=== PATIENT | female | born 1960 | race Hispanic/Latino ===

== ENCOUNTER 2018-04-27 08:08 | Outpatient (CLI) | payer MEDICARE, BC ==
[2018-04-27] MEDS ORDERED: Gadobenate Dimeglumine 529 MG/1 ML (20ML VIAL) ONE (14:58)
== END 2018-04-27 08:09 | disposition home or self-care (01) ==
LOC: BICMRI 08:08
PROVIDERS: ATTEND Psychiatry & Neurology Neurology
DX: G35 Multiple sclerosis (principal); R90.89 Other abnormal findings on diagnostic imaging of central nervous system
CPT/HCPCS: 70553; A9579

== ENCOUNTER 2019-11-08 09:03 | Outpatient (CLI) | payer MEDICARE, BC ==
--- NOTE | 2019-11-08 11:28 | MRI ---
BRAIN MRI WITH AND WITHOUT CONTRAST: DATE: 11/08/2019. COMPARISON: 10/18/2007. HISTORY: Reevaluate multiple sclerosis that was diagnosed in the . The patient reports no new symptoms. TECHNIQUE: Multiplanar, multisequence MR imaging of the brain is obtained with and without contrast. FINDINGS: The diffusion weighted imaging demonstrates no evidence for acute infarction. The axial gradient echo imaging demonstrates no evidence for intracranial hemorrhage. There is no midline shift or mass effect and there is no ventricular enlargement appreciated. There are numerous foci of increased T2 and FLAIR signal within the periventricular deep and subcorti vaishnavi white matter consistent with the patient's history of multiple sclerosis. There is linear increa sed FLAIR signal along the undersurface of the corpus callosum including the mid body and splenium. The white matter disease is confluent in the periventricular region adjacent to the anterior aspect o f bilateral lateral ventricles, right greater than left. There is a probable subtle T2 hyperintense lesion noted within the posterior lateral aspect of the po ns on the right on the FLAIR imaging measuring in the 3-4 mm range. Regional bone marrow signal intensity appears within normal limits. Post contrast imaging is provided, demonstrating no abnormal enhancement to suggest the presence of a ctive demyelination. Arterial flow voids appear grossly unremarkable at the axial level of the skull base on the T2 weighted imaging. When compared to the prior study performed in 2007, the degree of white matter disease has progressed in the periventricular regions adjacent to the body of the lateral ventricle bilaterally. A new sub cortical lesion is noted within the anterior right frontal lobe. The lesion within the sridhar appears new as well. IMPRESSION: Signal abnormality consistent with the provided history of multiple sclerosis. There has been progre ssion of periventricular disease since the 2007 exam. No more recent comparison imaging is available . No abnormal enhancement is seen to suggest the presence of active demyelination. POS: [facility]
[2019-11-08] MEDS ORDERED: Magnevist 469MG/ML 20 ML VIAL ONE (14:52)
== END 2019-11-08 09:04 | disposition home or self-care (01) ==
LOC: BICMRI 09:03
PROVIDERS: ATTEND Nurse Practitioner Acute Care
DX: G35 Multiple sclerosis (principal); G93.89 Other specified disorders of brain
CPT/HCPCS: 70553; A9579

== ENCOUNTER 2020-09-28 16:51 | Inpatient (IN) | payer MEDICARE, BC ==
--- NOTE | 2020-09-28 17:57 | RAD ---
Right hip two views: 09/28/20 HISTORY: Fall, right hip pain. FINDINGS/IMPRESSION: There is a tiny lucency involving the subcapital region of the outer aspect of the neck of the femur which could represent a nondisplaced fracture. POS: [facility]
[2020-09-28 18:01] LABS: #Eosinphils 0.1 thou/uL (0.0-0.7); #Lymphocytes 1.7 thou/uL (1.20-3.40); #Monocytes 0.7 thou/uL (0.11-0.59); #Neutrophils 8.2 thou/uL (1.40-6.50); %Basophils 0.3 % (0.0-1.0); %Eosinophils 0.5 % (0.0-10.0); %Lymphocytes 15.5 % (21.0-51.0); %Monocytes 6.9 % (0.0-10.0); %Neutrophils 76.8 % (42.0-75.0); Hemoglobin 13.1 g/dL (12.0-16.0); Mean Corpuscular HGB CONC 32.2 g/dL (32.0-36.0); Mean Corpuscular Hemoglobin 32.3 pg (27.0-31.0); Mean Platelet Volume 7.8 fL (7.4-10.4); Platelet Count 376 thou/uL (130-400); RBC Distribution Width 11.7 % (11.5-14.5); Red Blood Cell (RBC) Count 4.06 mill/uL (4.20-5.40); White Blood Cell (WBC) Count 10.7 thou/uL (4.8-10.8)
[2020-09-28 18:20] LABS: Bacteria/HPF 3+ HPF (None Seen); Bilirubin Negative (Negative); Blood, Urine 1+ (Negative); Clarity Turbid (Clear); Glucose, Urine (Dipstick) Normal (Negative); Ketone, Urine 60 mg/dL (Negative); Leukocyte 75 Leu/uL (Negative); Nitrite Negative (Negative); Protein, Urine (Dipstick) 50 mg/dL (Neg-Trace); RBC/HPF 0-3 HPF (0-3); Specific Gravity, Urine 1.028 (1.002-1.036); Squamous Epithelial 0-3 HPF (0-3)
[2020-09-28 18:37] LABS: ALT (SGPT) 28 U/L (8-55); AST (SGOT) 35 U/L (5-34); Albumin 3.8 g/dL (3.5-5.0); Alkaline Phosphatase 58 U/L (40-110); Anion Gap 15 mmol/L (10-20); BUN (Urea Nitrogen) 18 mg/dL (9.8-20.1); Bilirubin, Total 0.8 mg/dL (0.2-1.2); CK (CPK) 606 U/L (29-168); Calc. Creatinine Clearance 0 mL/min (70-130); Calcium 9.1 mg/dL (7.8-10.44); Carbon Dioxide 25 mmol/L (22-29); Chloride 103 mmol/L (98-107); Globulin 3.1 g/dL (2.4-3.5); Glucose 102 mg/dL (70-105); Potassium 3.7 mmol/L (3.5-5.1); Protein, Total 6.9 g/dL (6.0-8.3); Sodium 139 mmol/L (136-145)
--- NOTE | 2020-09-28 20:26 | CT ---
CT pelvis noncontrast: 09/28/2020 HISTORY: 59-year-old female with acute, traumatic right hip pain after fall Questionable nondisplaced fracture of right femoral neck on plain radiograph today FINDINGS: No fracture is visualized. However, the osteopenia could mask a nondisplaced or minimally impacted fr acture. No dislocation. No hematoma. No free fluid within pelvic cavity. Unremarkable urinary bladder. High-grade degenerative disc disease at L5-S1. IMPRESSION: 1. No fracture identified. 2. If the pain persists, noncontrast MRI of the pelvis is recommended in 5-10 days (unless there are contraindications).
[2020-09-28] MEDS ORDERED: cefTRIAXone\\ROCEPHIN 1 GM VIAL ONE (21:05)
[2020-09-28] MEDS ORDERED: Morphine 2 MG/ML VIAL ONE (21:05)
[2020-09-29 01:34] VITALS: BMI 25.8
--- NOTE | 2020-09-29 04:07 | PDOC.HHP ---
Hospitalist HPI Weakness History of Present Illness: This is a 59-year-old female patient with a history of arthritis, multiple scler osis who came in today on account of weakness and a fall occurring early in the morning. She has multiple sclerosis with chronic debility and ambulates with the aid of her walker. This morning she notes that she became weaker and fell down. But denied any head injury. She is concerned that she may have a multiple sclerosis flare. She came to the ED for further evaluation. She denies any associated chest pain palpitation or shortness of breath. She denied any recent fever or flulike symptoms or any other acute illness. At presentation BP was 146/71, pulse 83, respirate 18, temperature 98% saturation 96 on room air. Labs showed WBC 10.7, hemoglobin 13.1 and platelets 376. Chemistry was generally unremarkable besides creatinine kinase of 606. UA showed turbid ET with 75 leukocyte esterase and 7-10 WBCs. Also had 3+ bacteria. Pelvic CT revealed no fracture. She was started on ceftriaxone and received morphine and 1 L normal saline. Hospitalist team was consulted for admission. Allergies/Adverse Reactions: Allergy/AdvReac Type Severity Reaction Status Date / Time No Known Allergies Allergy Verified 09/29/20 01:30 Home Medications: Medication Instructions Recorded Confirmed Type Aspirin [Aspir-Low] 81 mg PO DAILY 11/13/16 09/29/20 History Dalfampridine [4-Aminopyridine] 5 mg PO TID 11/13/16 09/29/20 History Meloxicam [Mobic] 7.5 mg PO Q6HR PRN 11/13/16 09/29/20 History Acetaminophen [Tylenol] 325 mg PO Q4HR 09/29/20 09/29/20 History Past History: PMHx: Multiple sclerosis, arthritis PSHx: Cholecystectomy Family history: None of significance Social history: Occasional smoker, no alcohol or drug use. Lives with her brother. Hospitalist Exam Vitals: Vital Signs (12 hours) Temp Pulse Resp BP Pulse Ox 09/29/20 00:20 98.2 F 77 18 146/75 H 95 Weight Weight 155 lb 3 oz General Appearance: awake alert General - other findings: In no acute distress Eye: PERRL, anicteric sclera ENT: normocephalic atraumatic Heart: RRR, no murmur, no gallops, no rubs Respiratory: CTAB, no wheezes, no rales, no ronchi Gastrointestinal: soft, non-tender, non-distended, normal bowel sounds Extremities: no cyanosis, no clubbing, no edema Neurological: cranial nerve grossly intact Neurological - other findings: Follow-up 3/5 in right upper limb and follow-up 5 on left. 3/5 lower limbs Psychiatric: normal affect, normal behavior, A&O x 3 Hospitalist Results Result Diagrams: 09/29/20 04:40 09/29/20 04:40 Lab results: Laboratory Last Values WBC 10.7 thou/uL (4.8-10.8) 09/28/20 17:32 RBC 4.06 mill/uL (4.20-5.40) L 09/28/20 17:32 Hgb 13.1 g/dL (12.0-16.0) 09/28/20 17:32 Hct 40.6 % (36.0-47.0) 09/28/20 17:32 MCV 100.0 fL (78.0-98.0) H 09/28/20 17:32 MCH 32.3 pg (27.0-31.0) H 09/28/20 17:32 MCHC 32.2 g/dL (32.0-36.0) 09/28/20 17:32 RDW 11.7 % (11.5-14.5) 09/28/20 17:32 Plt Count 376 thou/uL (130-400) 09/28/20 17:32 MPV 7.8 fL (7.4-10.4) 09/28/20 17:32 Neutrophils % 76.8 % (42.0-75.0) H 09/28/20 17:32 Lymphocytes % 15.5 % (21.0-51.0) L 09/28/20 17:32 Monocytes % 6.9 % (0.0-10.0) 09/28/20 17:32 Eosinophils % 0.5 % (0.0-10.0) 09/28/20 17:32 Basophils % 0.3 % (0.0-1.0) 09/28/20 17:32 Neutrophils # 8.2 thou/uL (1.40-6.50) H 09/28/20 17:32 Lymphocytes # 1.7 thou/uL (1.20-3.40) 09/28/20 17:32 Monocytes # 0.7 thou/uL (0.11-0.59) H 09/28/20 17:32 Eosinophils # 0.1 thou/uL (0.0-0.7) 09/28/20 17:32 Basophils # 0.0 thou/uL (0.0-0.2) 09/28/20 17:32 Sodium 139 mmol/L (136-145) 09/28/20 17:32 Potassium 3.7 mmol/L (3.5-5.1) 09/28/20 17:32 Chloride 103 mmol/L (98-107) 09/28/20 17:32 Carbon Dioxide 25 mmol/L (22-29) 09/28/20 17:32 Anion Gap 15 mmol/L (10-20) 09/28/20 17:32 BUN 18 mg/dL (9.8-20.1) 09/28/20 17:32 Creatinine 0.60 mg/dL (0.6-1.1) 09/28/20 17:32 Estimated GFR (MDRD) Greater than 90 09/28/20 17:32 Glucose 102 mg/dL (70-105) 09/28/20 17:32 Calcium 9.1 mg/dL (7.8-10.44) 09/28/20 17:32 Total Bilirubin 0.8 mg/dL (0.2-1.2) 09/28/20 17:32 AST 35 U/L (5-34) H 09/28/20 17:32 ALT 28 U/L (8-55) 09/28/20 17:32 Alkaline Phosphatase 58 U/L (40-110) 09/28/20 17:32 Creatine Kinase 606 U/L (29-168) H 09/28/20 17:32 Troponin I Less than 0.010 ng/mL (< 0.028) 09/28/20 17:32 Serum Total Protein 6.9 g/dL (6.0-8.3) 09/28/20 17:32 Albumin 3.8 g/dL (3.5-5.0) 09/28/20 17:32 Globulin 3.1 g/dL (2.4-3.5) 09/28/20 17:32 Albumin/Globulin Ratio 1.2 g/dL (1.2-2.2) 09/28/20 17:32 Urine Color Yellow (Yellow) 09/28/20 18:02 Urine Clarity Turbid (Clear) A 09/28/20 18:02 Urine pH 6.0 (5.0-9.0) 09/28/20 18:02 Ur Specific [place] 1.028 (1.002-1.036) 09/28/20 18:02 Urine Protein 50 mg/dL (Neg-Trace) A 09/28/20 18:02 Urine Glucose (UA) Normal mg/dL (Negative) 09/28/20 18: Urine Ketones 60 mg/dL (Negative) A 09/28/20 18: Urine Blood 1+ (Negative) A 09/28/20 18: Urine Nitrite Negative (Negative) 09/28/20 18: Urine Bilirubin Negative (Negative) 09/28/20 18: Urine Urobilinogen 4.0 mg/dL (Less than 2) A 09/28/20 18:02 Ur Leukocyte Esterase 75 María/uL (Negative) A 09/28/20 18:02 Urine RBC 0-3 HPF (0-3) 09/28/20 18:02 Urine WBC 7-10 HPF (0-3) A 09/28/20 18:02 Ur Squamous Epith Cells 0-3 HPF (0-3) 09/28/20 18:02 Urine Bacteria 3+ HPF (None Seen) A 09/28/20 18:02 Hospitalist H&P A/P Plan: This is a 59-year-old female patient with a history of multiple sclerosis arthritis presenting with worsening weakness and a fall today. Labs are suggestive of UTI however she does have a multiple sclerosis flare. Generalized weakness UTI/MS flare Admit and monitor PT evaluation UTI Started on ceftriaxonewe will continue Follow-up on cultures Possible MS flare MRI of brain Consider neuro consult in a.m. Arthritis Resume home medications once verified. Fall Mechanical As needed pain medication No fracture on imaging Consider orthopedic evaluation Rhabdomyolysis CK elevated at 606 This is mild we will monitor. CODE STATUSfull code [place] prophylaxisLovenox Addendum: Patient's COVID-19 testing are positive. Start vitamin C/D/zinc Check inflammatory markers
[2020-09-29 04:49] LABS: SARS-CoV-2 PCR by NAA DETECTED (NotDetected)
[2020-09-29 05:34] LABS: #Eosinphils 0.2 thou/uL (0.0-0.7); #Lymphocytes 1.9 thou/uL (1.20-3.40); #Monocytes 0.7 thou/uL (0.11-0.59); #Neutrophils 4.1 thou/uL (1.40-6.50); %Basophils 0.4 % (0.0-1.0); %Eosinophils 2.8 % (0.0-10.0); %Lymphocytes 27.7 % (21.0-51.0); %Monocytes 9.8 % (0.0-10.0); %Neutrophils 59.3 % (42.0-75.0); Mean Corpuscular HGB CONC 32.8 g/dL (32.0-36.0); Mean Corpuscular Hemoglobin 33.1 pg (27.0-31.0); Mean Platelet Volume 7.9 fL (7.4-10.4); Platelet Count 332 thou/uL (130-400); RBC Distribution Width 11.8 % (11.5-14.5); Red Blood Cell (RBC) Count 3.63 mill/uL (4.20-5.40); White Blood Cell (WBC) Count 6.9 thou/uL (4.8-10.8)
[2020-09-29 05:57] LABS: Anion Gap 15 mmol/L (10-20); BUN (Urea Nitrogen) 14 mg/dL (9.8-20.1); Calc. Creatinine Clearance 114 mL/min (70-130); Calcium 8.5 mg/dL (7.8-10.44); Carbon Dioxide 23 mmol/L (22-29); Chloride 103 mmol/L (98-107); Glucose 96 mg/dL (70-105); Potassium 3.1 mmol/L (3.5-5.1); Sodium 138 mmol/L (136-145)
[2020-09-29] MEDS: Cholecalciferol (Vitamin D3) 400 UNITS TAB PO SCH (08:33)
[2020-09-29] MEDS: Ascorbic Acid 500 mg Chewable Tablet PO SCH (08:33)
[2020-09-29] MEDS: Sodium Chloride 0.9% 1,000 ML IV SCH ×2 (08:34→14:58)
[2020-09-29] MEDS: Zinc Sulfate 220 MG CAP PO SCH (08:34)
[2020-09-29] MEDS ORDERED: Enoxaparin Sodium 40 MG/0.4 ML SYRINGE SC SCH (09:00)
[2020-09-29] MEDS ORDERED: Potassium Chloride 20 MEQ TAB PO SCH (10:30)
[2020-09-29] MEDS ORDERED: Magnevist 469MG/ML 20 ML VIAL ONE ×2 (10:38)
--- NOTE | 2020-09-29 11:47 | MRI ---
MRI Brain W WO Con: 09/29/2020 10:50 AM CLINICAL HISTORY: History of multiple sclerosis and concern for acute exacerbation. TECHNIQUE: Multiplanar, multisequence images were obtained of the brain with and without contrast. Tiago stephanie received 14 cc of MultiHance for the evaluation. COMPARISON: MR the brain with and without contrast dated November 08, 2019 FINDINGS: Extra axial spaces: Normal in size and morphology for the patient's age. Hemorrhage: None. Ventricular system: Normal in size and morphology for the patient's age. Basal cisterns: Normal. Cerebral parenchyma: The periventricular T2 and FLAIR signal abnormalities seen within the white mahin er are largely stable consistent patient's history of multiple sclerosis. The extent of the white matter signal abnormalities is stable. No abnormal enhancement is seen to suggest presence of active demyelination.. Midline shift: None. Cerebellum: Normal. Brainstem: Normal. OTHER: Calvarium: Normal. Vascular system: Normal. Visualized Paranasal sinuses: Clear. Visualized Orbits: Normal. Visualized upper cervical spine: Normal. Sella and skull base: Normal. IMPRESSION: Stable periventricular T2 and FLAIR white matter signal abnormalities involving both cerebral hemisph eres consistent with patient's history of multiple sclerosis; stable to the most recent prior exam dated November 08, 2019. No definite evidence for active demyelination.
--- NOTE | 2020-09-29 14:40 | PDOC.HOSPP ---
- Subjective Encounter Date: 09/29/20 Encounter Time: 10:45 Subjective: Patient seen this morning. She has no acute complaints. Covid is positive. MRI pending. - Objective Vital Signs & Weight: Vital Signs (12 hours) Temp Pulse Resp BP Pulse Ox 09/29/20 12:00 98.4 F 70 18 148/52 H 95 09/29/20 07:00 98.2 F 77 18 135/70 94 L 09/29/20 06:00 136/66 09/29/20 05:59 97.6 F 80 18 167/73 H 96 Weight Weight 155 lb 3 oz I&O: 09/28/20 09/29/20 09/30/20 06:59 06:59 06:59 Intake Total 370 Balance 370 Result Diagrams: 09/29/20 04:40 09/29/20 04:40 Hospitalist ROS - Medication Medications: Active Medications Generic Name Dose Route Start Last Admin Trade Name Freq PRN Reason Stop Dose Admin Ascorbic Acid 1,000 mg 09/29/20 09:00 09/29/20 08:33 Ascorbic Acid 500 Mg Chewable Tablet PO 1,000 mg DAILY BLAKE Administration Cholecalciferol 400 units 09/29/20 09:00 09/29/20 08:33 Cholecalciferol (Vitamin D3) 400 Units Tab PO 400 units DAILY BLAKE Administration Sodium Chloride 1,000 mls @ 100 mls/hr 09/29/20 07:00 09/29/20 08:34 Normal Saline 0.9% IV 1,000 mls .Q10H BLAKE Administration Zinc Sulfate 220 mg 09/29/20 09:00 09/29/20 08:34 Zinc Sulfate 220 Mg Cap PO 220 mg DAILY BLAKE Administration Hospitalist Exam Vitals: Vital Signs (12 hours) Temp Pulse Resp BP Pulse Ox 09/29/20 12:00 98.4 F 70 18 148/52 H 95 09/29/20 07:00 98.2 F 77 18 135/70 94 L 09/29/20 06:00 136/66 09/29/20 05:59 97.6 F 80 18 167/73 H 96 Weight Weight 155 lb 3 oz General Appearance: NAD, awake alert Eye: PERRL ENT: normocephalic atraumatic Neck: supple Heart: RRR, normal peripheral pulses Respiratory: CTAB, normal chest expansion Gastrointestinal: soft, normal bowel sounds Neurological: cranial nerve grossly intact, no focal deficits Psychiatric: A&O x 3 Hosp A/P - Plan 59-year-old female patient with a history of multiple sclerosis arthritis presenting with worsening weakness and a fall today. Generalized weakness Fall UTI/MS flare -Follow-up on MRI -Neurology consult placed -Decadron to cover for Covid as well as MS flareup -If MS flareup is a full-blown she needs 1 g IV Solu-Medrol daily -However MRI report suggested that no abnormal enhancement is to suggest active demyelination and she has signal abnormalities in the white matter largely stable -I will continue with the Decadron to cover for Covid unless neurology feels otherwise and to escalate the steroid. UTI Started on ceftriaxonewe will continue Follow-up on cultures Arthritis Resume home medications once verified. Fall Mechanical As needed pain medication No fracture on imaging Rhabdomyolysis CK elevated at 606 CODE STATUSfull code [place] prophylaxisLovenox
--- NOTE | 2020-09-29 17:01 | CON ---
NEUROLOGY CONSULTATION DATE OF CONSULTATION: 09/29/2020 REASON FOR CONSULTATION: Generalized weakness. HISTORY OF PRESENT ILLNESS: Ms. Michael is a 59-year-old female with history significant for arthritis, multiple sclerosis, who presented because of generalized weakness and a fall earlier on the morning of 09/28/2020. She does have a history of multiple sclerosis with chronic weakness and ambulates with the help of a walker. The patient denies any focal weakness, focal paresthesias, nausea, vomiting, headache, chest pain, shortness of breath, flu-like symptoms, double vision, loss of vision, urinary urgency, or abnormal involuntary movements associated with the episode. On presentation to the emergency room, her blood pressure was 146/71, pulse 83, respiratory rate 18. Urinalysis was done, which shows 3+ bacteria and positive leukocyte esterase. She was admitted for admission and to rule out MS exacerbation. Allergies/Adverse Reactions: Allergy/AdvReac Type Severity Reaction Status Date / Time No Known Allergies Allergy Verified 09/29/20 01:30 Home Medications: Medication Instructions Recorded Confirmed Type Aspirin [Aspir-Low] 81 mg PO DAILY 11/13/16 09/29/20 History Dalfampridine [4-Aminopyridine] 5 mg PO TID 11/13/16 09/29/20 History Meloxicam [Mobic] 7.5 mg PO Q6HR PRN 11/13/16 09/29/20 History Acetaminophen [Tylenol] 325 mg PO Q4HR 09/29/20 09/29/20 History PAST MEDICAL HISTORY: Multiple sclerosis and arthritis. PAST SURGICAL HISTORY: Cholecystectomy. FAMILY HISTORY: No significant family history of stroke or seizures. SOCIAL HISTORY: The patient is an occasional smoker. Denies smoking. Denies alcohol and illegal drug use. She lives with her brother. Vital Signs & Weight: Vital Signs (12 hours) Temp Pulse Resp BP Pulse Ox 09/29/20 12:00 98.4 F 70 18 148/52 H 95 09/29/20 07:00 98.2 F 77 18 135/70 94 L 09/29/20 06:00 136/66 09/29/20 05:59 97.6 F 80 18 167/73 H 96 Weight Weight 155 lb 3 oz I&O: 09/28/20 09/29/20 09/30/20 06:59 06:59 06:59 Intake Total 370 Balance 370 Active Medications Generic Name Dose Route Start Last Admin Trade Name [place] PRN Reason Stop Dose Admin Ascorbic Acid 1,000 mg 09/29/20 09:00 09/29/20 08:33 Ascorbic Acid 500 Mg Chewable Tablet PO 1,000 mg DAILY BLAKE Administration Cholecalciferol 400 units 09/29/20 09:00 09/29/20 08:33 Cholecalciferol (Vitamin D3) 400 Units Tab PO 400 units DAILY BLAKE Administration Sodium Chloride 1,000 mls @ 100 mls/hr 09/29/20 07:00 09/29/20 08:34 Normal Saline 0.9% IV 1,000 mls .Q10H BLAKE Administration Zinc Sulfate 220 mg 09/29/20 09:00 09/29/20 08:34 Zinc Sulfate 220 Mg Cap PO 220 mg DAILY BLAKE Administration PHYSICAL EXAMINATION: General Appearance: awake alert General - other findings: In no acute distress Eye: PERRL, anicteric sclera ENT: normocephalic atraumatic Heart: RRR, no murmur, no gallops, no rubs Respiratory: CTAB, no wheezes, no rales, no ronchi Gastrointestinal: soft, non-tender, non-distended, normal bowel sounds Extremities: no cyanosis, no clubbing, no edema Neurological:Mental status, the patient is alert and oriented to person, place, and time. Speech is clear. Cranial nerves 2 through 12 intact. Motor, muscle tone and bulk are normal. Strength, generalized weakness about 3+/5 bilaterally. Cerebellar finger-nose testing intact. Gait deferred due to the patient's safety reason. DATA REVIEWED: I reviewed the labs, which were significant for hypokalemia. MRI of the brain did not reveal any signs of active demyelination. Lab results: Laboratory Last Values WBC 10.7 thou/uL (4.8-10.8) 09/28/20 17:32 RBC 4.06 mill/uL (4.20-5.40) L 09/28/20 17:32 Hgb 13.1 g/dL (12.0-16.0) 09/28/20 17:32 Hct 40.6 % (36.0-47.0) 09/28/20 17:32 MCV 100.0 fL (78.0-98.0) H 09/28/20 17:32 MCH 32.3 pg (27.0-31.0) H 09/28/20 17:32 MCHC 32.2 g/dL (32.0-36.0) 09/28/20 17:32 RDW 11.7 % (11.5-14.5) 09/28/20 17:32 Plt Count 376 thou/uL (130-400) 09/28/20 17:32 MPV 7.8 fL (7.4-10.4) 09/28/20 17:32 Neutrophils % 76.8 % (42.0-75.0) H 09/28/20 17:32 Lymphocytes % 15.5 % (21.0-51.0) L 09/28/20 17:32 Monocytes % 6.9 % (0.0-10.0) 09/28/20 17:32 Eosinophils % 0.5 % (0.0-10.0) 09/28/20 17:32 Basophils % 0.3 % (0.0-1.0) 09/28/20 17:32 Neutrophils # 8.2 thou/uL (1.40-6.50) H 09/28/20 17:32 Lymphocytes # 1.7 thou/uL (1.20-3.40) 09/28/20 17:32 Monocytes # 0.7 thou/uL (0.11-0.59) H 09/28/20 17:32 Eosinophils # 0.1 thou/uL (0.0-0.7) 09/28/20 17:32 Basophils # 0.0 thou/uL (0.0-0.2) 09/28/20 17:32 Sodium 139 mmol/L (136-145) 09/28/20 17:32 Potassium 3.7 mmol/L (3.5-5.1) 09/28/20 17:32 Chloride 103 mmol/L (98-107) 09/28/20 17:32 Carbon Dioxide 25 mmol/L (22-29) 09/28/20 17:32 Anion Gap 15 mmol/L (10-20) 09/28/20 17:32 BUN 18 mg/dL (9.8-20.1) 09/28/20 17:32 Creatinine 0.60 mg/dL (0.6-1.1) 09/28/20 17:32 Estimated GFR (MDRD) Greater than 90 09/28/20 17:32 Glucose 102 mg/dL (70-105) 09/28/20 17: Calcium 9.1 mg/dL (7.8-10.44) 09/28/20 17:32 Total Bilirubin 0.8 mg/dL (0.2-1.2) 09/28/20 17:32 AST 35 U/L (5-34) H 09/28/20 17: ALT 28 U/L (8-55) 09/28/20 17: Alkaline Phosphatase 58 U/L (40-110) 09/28/20 17: Creatine Kinase 606 U/L (29-168) H 09/28/20 17: Troponin I Less than 0.010 ng/mL (< 0.028) 09/28/20 17:32 Serum Total Protein 6.9 g/dL (6.0-8.3) 09/28/20 17: Albumin 3.8 g/dL (3.5-5.0) 09/28/20 17: Globulin 3.1 g/dL (2.4-3.5) 09/28/20 17: Albumin/Globulin Ratio 1.2 g/dL (1.2-2.2) 09/28/20 17:32 Urine Color Yellow (Yellow) 09/28/20 18:02 Urine Clarity Turbid (Clear) A 09/28/20 18:02 Urine pH 6.0 (5.0-9.0) 09/28/20 18:02 Ur Specific [place] 1.028 (1.002-1.036) 09/28/20 18:02 Urine Protein 50 mg/dL (Neg-Trace) A 09/28/20 18:02 Urine Glucose (UA) Normal mg/dL (Negative) 09/28/20 18: Urine Ketones 60 mg/dL (Negative) A 09/28/20 18: Urine Blood 1+ (Negative) A 09/28/20 18:02 Urine Nitrite Negative (Negative) 09/28/20 18: Urine Bilirubin Negative (Negative) 09/28/20 18: Urine Urobilinogen 4.0 mg/dL (Less than 2) A 09/28/20 18:02 Ur Leukocyte Esterase 75 María/uL (Negative) A 09/28/20 18:02 Urine RBC 0-3 HPF (0-3) 09/28/20 18:02 Urine WBC 7-10 HPF (0-3) A 09/28/20 18:02 Ur Squamous Epith Cells 0-3 HPF (0-3) 09/28/20 18:02 Urine Bacteria 3+ HPF (None Seen) A 09/28/20 18:02 ASSESSMENT AND PLAN: Ms. Tamiko Michael is a 59-year-old female, who presented with history of multiple sclerosis presented with generalized weakness and a fall. Weakness is most likely secondary to UTI, infectious etiology. MRI of the brain reviewed, which was negative for active demyelinating lesions and stable changes as compared to the prior MRI. No need to treat with the steroid since MRI of the brain is negative. Continue home medications. Neuro checks every 4 hours. Continue medical management per primary team. PT/OT. DVT prophylaxis Fall precautions. The patient is also tested positive for COVID-19, so most likely that can also play a role in generalized weakness. Thank you for the consult. Job ID: [id number] MTDD
--- NOTE | 2020-09-29 18:23 | CON ---
DATE OF CONSULTATION: 09/29/2020 HISTORY OF PRESENT ILLNESS: Ms. Michael is a 59-year-old female with a ground level fall. The patient has chronic debility and ambulates with the aid of her walker. She noted that she became weaker and fell. No history of back injury. The patient is currently resting on the 4th floor and had a positive COVID test. PAST MEDICAL HISTORY: Multiple sclerosis, and arthritis. PAST SURGICAL HISTORY: Cholecystectomy. ALLERGIES: NO KNOWN DRUG ALLERGIES. SOCIAL HISTORY: The patient is an occasional smoker. Denies illicit, alcohol, or drug abuse. Lives with her brother. REVIEW OF SYSTEMS: +weakness, + cough, fever, +fatique, + gait imbalance, negative except above 10 point review PHYSICAL EXAMINATION: VITAL SIGNS: Today were 98.2, 77, rate 18, 94%, 135/70. GENERAL: Alert and oriented female, resting in bed. EXTREMITIES: Right lower extremity. She has a weak dorsiflexion and toe extension. She has gross sensation intact to L4 through S1 distributions. She has a weak flexion and extension of her knee. No effusion, ecchymosis. Posterior calf soft, swollen; soft, nonswollen leg. The patient has minimal pain with internal and external rotation of right hip Pelvis stable. DIAGNOSTIC STUDIES: The patient's radiographs of the right hip showed what appeared to be a potential tension sided femoral neck fracture. CT scan showed no obvious occult fracture line. IMPRESSION: 1. Status post fall. 2. Multiple sclerosis. 3. Right hip pain, question of possible nondisplaced hip fracture. ASSESSMENT AND PLAN: The patient will be touchdown weightbearing to right lower extremity utilizing a walker. She is managed for COVID as well as her medical problems with general medicine and we appreciate their help. The patient will be followed. She will need follow up on negative COVID upon clearance in 2 weeks of her COVID quarantine. We will repeat x-rays of her right hip to ensure that there are no signs of acute fracture. I discussed with her that potentially the patient may require care if she were to complete the fracture with total hip arthroplasty. She understands this and we will continue to follow in house. Job ID: [id number] MTDD
[2020-09-29] MEDS: cefTRIAXone\\ROCEPHIN 1 GM in Sodium Chloride 0.9% 100 ML IVPB SCH (21:35)
[2020-09-29] MEDS: Enoxaparin Sodium 40 MG/0.4 ML SYRINGE SC SCH (21:36)
[2020-09-29] MEDS: Acetaminophen 325 MG TAB PO PRN (23:56)
[2020-09-30] MEDS: Sodium Chloride 0.9% 1,000 ML IV SCH ×3 (06:22→19:28)
[2020-09-30] MEDS: Acetaminophen 325 MG TAB PO PRN ×2 (06:30→10:49)
[2020-09-30] MEDS: Dexamethasone 4 mg/ml Vial SLOW IVP SCH (08:31)
[2020-09-30] MEDS: Zinc Sulfate 220 MG CAP PO SCH (08:31)
[2020-09-30] MEDS: Cholecalciferol (Vitamin D3) 400 UNITS TAB PO SCH (08:31)
[2020-09-30] MEDS: Ascorbic Acid 500 mg Chewable Tablet PO SCH (08:31)
[2020-09-30] MEDS: Enoxaparin Sodium 40 MG/0.4 ML SYRINGE SC SCH ×2 (08:31→19:28)
[2020-09-30] MEDS ORDERED: Potassium Chloride 20 MEQ TAB PO SCH (10:30)
[2020-09-30] MEDS ORDERED: hydrALAZINE 20 MG/ML VIAL SLOW IVP PRN (10:32)
[2020-09-30] MEDS ORDERED: Amlodipine 5 MG TAB PO SCH (10:45)
[2020-09-30 12:08] LABS: Anion Gap 15 mmol/L (10-20); BUN (Urea Nitrogen) 4 mg/dL (9.8-20.1); Calc. Creatinine Clearance 129 mL/min (70-130); Calcium 8.7 mg/dL (7.8-10.44); Carbon Dioxide 22 mmol/L (22-29); Chloride 103 mmol/L (98-107); Glucose 106 mg/dL (70-105); Potassium 3.7 mmol/L (3.5-5.1); Sodium 136 mmol/L (136-145)
--- NOTE | 2020-09-30 14:38 | PDOC.HOSPP ---
- Subjective Encounter Date: 09/30/20 Encounter Time: 10:28 Subjective: Patient feels still has some ongoing right hip area pain. She is on room air satting 96% regarding Covid - Objective Vital Signs & Weight: Vital Signs (12 hours) Temp Pulse Resp BP Pulse Ox 09/30/20 12:48 98.0 F 62 20 136/69 96 09/30/20 12:03 69 09/30/20 07:00 98.2 F 69 20 152/74 H 95 Weight Weight 155 lb 3 oz I&O: 09/29/20 09/30/20 10/01/20 06:59 06:59 06:59 Intake Total 370 Balance 370 Result Diagrams: 09/29/20 04:40 09/30/20 11:40 Hospitalist ROS - Medication Medications: Active Medications Generic Name Dose Route Start Last Admin Trade Name Freq PRN Reason Stop Dose Admin Acetaminophen 650 mg 09/29/20 23:43 09/30/20 10:49 Acetaminophen 325 Mg Tab PO 650 mg Q4H PRN Administration Headache/Fever or Pain Ascorbic Acid 1,000 mg 09/29/20 09:00 09/30/20 08:31 Ascorbic Acid 500 Mg Chewable Tablet PO 1,000 mg DAILY BLAKE Administration Cholecalciferol 400 units 09/29/20 09:00 09/30/20 08:31 Cholecalciferol (Vitamin D3) 400 Units Tab PO 400 units DAILY BLAKE Administration Dexamethasone 6 mg 09/30/20 09:00 09/30/20 08:31 Dexamethasone 4 Mg/Ml Vial SLOW IVP 6 mg DAILY BLAKE Administration Enoxaparin Sodium 40 mg 09/29/20 21:00 09/30/20 08:31 Enoxaparin Sodium 40 Mg/0.4 Ml Syringe SC 40 mg BID BLAKE Administration Ceftriaxone Sodium 1 gm/ 100 mls @ 200 mls/hr 09/29/20 19:00 09/29/20 21:35 Sodium Chloride IVPB 100 mls Q24HR BLAKE Administration Sodium Chloride 1,000 mls @ 100 mls/hr 09/29/20 07:00 09/30/20 12:03 Normal Saline 0.9% IV 1,000 mls .Q10H BLAKE Administration Zinc Sulfate 220 mg 09/29/20 09:00 09/30/20 08:31 Zinc Sulfate 220 Mg Cap PO 220 mg DAILY BLAKE Administration Hospitalist Exam Vitals: Vital Signs (12 hours) Temp Pulse Resp BP Pulse Ox 09/30/20 12:48 98.0 F 62 20 136/69 96 09/30/20 12:03 69 09/30/20 07:00 98.2 F 69 20 152/74 H 95 Weight Weight 155 lb 3 oz General Appearance: NAD, awake alert Eye: PERRL ENT: normocephalic atraumatic Neck: supple Heart: RRR, normal peripheral pulses Respiratory: CTAB, normal chest expansion Gastrointestinal: soft, normal bowel sounds Neurological: cranial nerve grossly intact, no focal deficits Psychiatric: normal affect, normal behavior, A&O x 3 Hosp A/P - Plan 59-year-old female patient with a history of multiple sclerosis arthritis presenting with worsening weakness and a fall today. Generalized weakness Status post ground-level fall Mechanical fall -X-ray of the hip showed no fractures but recommended MRI in 5 to 10 days if ongoing pain. -CT of the hip with noncontrast showed again no fracture recommendation for MRI in 10 days -Orthopedic following with us MS -stable -Neurology consult note reviewed -However MRI report suggested that no abnormal enhancement to suggest active demyelination and she has signal abnormalities in the white matter largely stable -I will continue with the Decadron to cover for Covid Gram-negative UTI Started on ceftriaxonewe will continue Follow-up on sensitivity Rhabdomyolysis CK elevated at 606 Robaxin and Ultram as needed CODE STATUSfull code VT prophylaxisLovenox
[2020-09-30] MEDS: cefTRIAXone\\ROCEPHIN 1 GM in Sodium Chloride 0.9% 100 ML IVPB SCH (19:27)
[2020-09-30] MEDS: Amlodipine 5 MG TAB PO SCH (19:28)
[2020-09-30] MEDS: traMADol HCl 50 MG TAB PO PRN (20:18)
[2020-10-01] MEDS: Acetaminophen 325 MG TAB PO PRN (05:06)
[2020-10-01] MEDS: Dexamethasone 4 mg/ml Vial SLOW IVP SCH (08:47)
[2020-10-01] MEDS: Zinc Sulfate 220 MG CAP PO SCH (08:48)
[2020-10-01] MEDS: Cholecalciferol (Vitamin D3) 400 UNITS TAB PO SCH (08:48)
[2020-10-01] MEDS: Ascorbic Acid 500 mg Chewable Tablet PO SCH (08:48)
[2020-10-01] MEDS: Sodium Chloride 0.9% 1,000 ML IV SCH ×3 (08:49→19:56)
[2020-10-01] MEDS: Amlodipine 5 MG TAB PO SCH ×2 (08:51→19:56)
[2020-10-01] MEDS: traMADol HCl 50 MG TAB PO PRN (08:51)
[2020-10-01] MEDS: Enoxaparin Sodium 40 MG/0.4 ML SYRINGE SC SCH ×2 (08:53→19:56)
[2020-10-01] MEDS: Ondansetron PF 4 MG/2 ML Vial IVP PRN (09:46)
--- NOTE | 2020-10-01 13:42 | PDOC.HOSPP ---
- Subjective Encounter Date: 10/01/20 Encounter Time: 11:10 Subjective: Patient is in a lot of distress with left leg pain as well as right hip. She is able to sit up with physical therapy assist. He has some cough and is she is satting 94% in the room air. - Objective Vital Signs & Weight: Vital Signs (12 hours) Temp Pulse Resp BP Pulse Ox 10/01/20 08:51 78 10/01/20 08:00 94 L 10/01/20 07:18 98.1 F 78 18 139/66 94 L Weight Weight 155 lb 3 oz I&O: 09/30/20 10/01/20 10/02/20 06:59 06:59 06:59 Intake Total 1440 Output Total 700 Balance 740 Result Diagrams: 09/29/20 04:40 09/30/20 11:40 Hospitalist ROS - Medication Medications: Active Medications Generic Name Dose Route Start Last Admin Trade Name Freq PRN Reason Stop Dose Admin Acetaminophen 650 mg 09/29/20 23:43 10/01/20 05:06 Acetaminophen 325 Mg Tab PO 650 mg Q4H PRN Administration Headache/Fever or Pain Amlodipine Besylate 5 mg 09/30/20 21:00 10/01/20 08:51 Amlodipine 5 Mg Tab PO 5 mg BID BLAKE Administration Ascorbic Acid 1,000 mg 09/29/20 09:00 10/01/20 08:48 Ascorbic Acid 500 Mg Chewable Tablet PO 1,000 mg DAILY BLAKE Administration Cholecalciferol 400 units 09/29/20 09:00 10/01/20 08:48 Cholecalciferol (Vitamin D3) 400 Units Tab PO 400 units DAILY BLAKE Administration Dexamethasone 6 mg 09/30/20 09:00 10/01/20 08:47 Dexamethasone 4 Mg/Ml Vial SLOW IVP 6 mg DAILY BLAKE Administration Enoxaparin Sodium 40 mg 09/29/20 21:00 10/01/20 08:53 Enoxaparin Sodium 40 Mg/0.4 Ml Syringe SC 40 mg BID BLAKE Administration Ceftriaxone Sodium 1 gm/ 100 mls @ 200 mls/hr 09/29/20 19:00 09/30/20 19:27 Sodium Chloride IVPB 100 mls Q24HR BLAKE Administration Sodium Chloride 1,000 mls @ 100 mls/hr 09/29/20 07:00 10/01/20 08:49 Normal Saline 0.9% IV 1,000 mls .Q10H BLAKE Administration Ondansetron HCl 4 mg 10/01/20 09:35 10/01/20 09:46 Ondansetron Pf 4 Mg/2 Ml Vial IVP 4 mg Q6H PRN Administration Nausea/Vomiting Tramadol HCl 50 mg 09/30/20 14:38 10/01/20 08:51 Tramadol Hcl 50 Mg Tab PO 50 mg Q6H PRN Administration Pain Zinc Sulfate 220 mg 09/29/20 09:00 10/01/20 08:48 Zinc Sulfate 220 Mg Cap PO 220 mg DAILY BLAKE Administration Hospitalist Exam Vitals: Vital Signs (12 hours) Temp Pulse Resp BP Pulse Ox 10/01/20 08:51 78 10/01/20 08:00 94 L 10/01/20 07:18 98.1 F 78 18 139/66 94 L Weight Weight 155 lb 3 oz General Appearance: NAD, awake alert Eye: PERRL ENT: normocephalic atraumatic Neck: supple Heart: RRR Respiratory: CTAB, normal chest expansion Gastrointestinal: soft, normal bowel sounds Neurological: hemiplegia Neurological - other findings: Left leg weakness Musculoskeletal: generalized weakness Psychiatric: normal affect, normal behavior, A&O x 3 Hosp A/P - Plan 59-year-old female patient with a history of multiple sclerosis arthritis presenting with worsening weakness and a fall today. Generalized weakness Status post ground-level fall Mechanical fall -X-ray of the hip showed no fractures but recommended MRI in 5 to 10 days if ongoing pain. -CT of the hip with noncontrast showed again no fracture recommendation for MRI in 10 days -Orthopedic following with us MS -stable -Neurology consult note reviewed -However MRI report suggested that no abnormal enhancement to suggest active demyelination and she has signal abnormalities in the white matter largely stable -I will continue with the Decadron to cover for Covid Gram-negative UTI Started on ceftriaxonewe will continue Follow-up on sensitivity Rhabdomyolysis CK elevated at 606 Robaxin and Ultram as needed CODE STATUSfull code VT prophylaxisLovenox 8th Patient is not able to move much is ongoing or worsening left leg pain. -Radiologist recommended MRI 10 days later but given her ongoing symptoms will get the MRI done Sed rate and CRP -Continue with physical therapy -If her insurance allowed she may benefit with inpatient rehab
[2020-10-01] MEDS: cefTRIAXone\\ROCEPHIN 1 GM in Sodium Chloride 0.9% 100 ML IVPB SCH (17:56)
[2020-10-01] MEDS: Senokot S 8.6-50 MG TAB PO SCH (19:56)
[2020-10-01] MEDS: HYDROcodone/Acetaminophen 5/325 mg Tablet PO PRN (20:09)
[2020-10-02] MEDS: Senokot S 8.6-50 MG TAB PO SCH ×2 (08:16→20:05)
[2020-10-02] MEDS: Zinc Sulfate 220 MG CAP PO SCH (08:16)
[2020-10-02] MEDS: HYDROcodone/Acetaminophen 5/325 mg Tablet PO PRN ×2 (08:16→20:04)
[2020-10-02] MEDS: Cholecalciferol (Vitamin D3) 400 UNITS TAB PO SCH (08:16)
[2020-10-02] MEDS: Ascorbic Acid 500 mg Chewable Tablet PO SCH (08:16)
[2020-10-02] MEDS: Dexamethasone 4 mg/ml Vial SLOW IVP SCH (08:17)
[2020-10-02] MEDS: Enoxaparin Sodium 40 MG/0.4 ML SYRINGE SC SCH ×2 (08:17→20:05)
[2020-10-02] MEDS: Amlodipine 5 MG TAB PO SCH ×2 (08:17→20:04)
[2020-10-02] MEDS: Sodium Chloride 0.9% 1,000 ML IV SCH (08:23)
--- NOTE | 2020-10-02 14:43 | PDOC.HOSPP ---
- Subjective Encounter Date: 10/02/20 Encounter Time: 11:45 Subjective: Patient seen this morning that she is still has some ongoing pain adn wekaness this in her legs. most notable on the left side. Inflammatory markers are high. Will get MRI scan to make sure there is no osteomyelitis as CT scan suggested some lucency. - Objective Vital Signs & Weight: Vital Signs (12 hours) Temp Pulse Resp BP Pulse Ox 10/02/20 08:00 96 10/02/20 07:18 98.2 F 74 16 134/65 97 Weight Weight 155 lb 3 oz I&O: 10/01/20 10/02/20 10/03/20 06:59 06:59 06:59 Intake Total 1440 Output Total 700 Balance 740 Result Diagrams: 09/29/20 04:40 09/30/20 11:40 Hospitalist ROS - Medication Medications: Active Medications Generic Name Dose Route Start Last Admin Trade Name Freq PRN Reason Stop Dose Admin Acetaminophen 650 mg 09/29/20 23:43 10/01/20 05:06 Acetaminophen 325 Mg Tab PO 650 mg Q4H PRN Administration Headache/Fever or Pain Hydrocodone Bitart/Acetaminophen 1 tab 10/01/20 13:41 10/02/20 08:16 Hydrocodone/Acetaminophen 5/325 Mg Tablet PO 1 tab Q6H PRN Administration Pain (5-10) Amlodipine Besylate 5 mg 09/30/20 21:00 10/02/20 08:17 Amlodipine 5 Mg Tab PO 5 mg BID BLAKE Administration Ascorbic Acid 1,000 mg 09/29/20 09:00 10/02/20 08:16 Ascorbic Acid 500 Mg Chewable Tablet PO 1,000 mg DAILY BLAKE Administration Cholecalciferol 400 units 09/29/20 09:00 10/02/20 08:16 Cholecalciferol (Vitamin D3) 400 Units Tab PO 400 units DAILY BLAKE Administration Dexamethasone 6 mg 09/30/20 09:00 10/02/20 08:17 Dexamethasone 4 Mg/Ml Vial SLOW IVP 6 mg DAILY BLAKE Administration Enoxaparin Sodium 40 mg 09/29/20 21:00 10/02/20 08:17 Enoxaparin Sodium 40 Mg/0.4 Ml Syringe SC 40 mg BID BLAKE Administration Ceftriaxone Sodium 1 gm/ 100 mls @ 200 mls/hr 09/29/20 19:00 10/01/20 17:56 Sodium Chloride IVPB 100 mls Q24HR BLAKE Administration Sodium Chloride 1,000 mls @ 100 mls/hr 09/29/20 07:00 10/02/20 08:23 Normal Saline 0.9% IV 1,000 mls .Q10H BLAKE Administration Ondansetron HCl 4 mg 10/01/20 09:35 10/01/20 09:46 Ondansetron Pf 4 Mg/2 Ml Vial IVP 4 mg Q6H PRN Administration Nausea/Vomiting Senna/Docusate Sodium 1 tab 10/01/20 21:00 10/02/20 08:16 Senokot S 8.6-50 Mg Tab PO 1 tab BID BLAKE Administration Sodium Chloride 10 ml 10/01/20 21:00 10/01/20 19:57 Flush - Normal Saline 10 Ml Syringe IVF Not Given Q12HR BLAKE Zinc Sulfate 220 mg 09/29/20 09:00 10/02/20 08:16 Zinc Sulfate 220 Mg Cap PO 220 mg DAILY BLAKE Administration Hospitalist Exam Vitals: Vital Signs (12 hours) Temp Pulse Resp BP Pulse Ox 10/02/20 08:00 96 10/02/20 07:18 98.2 F 74 16 134/65 97 Weight Weight 155 lb 3 oz General Appearance: NAD, awake alert Eye: PERRL ENT: normocephalic atraumatic Neck: supple Heart: RRR Respiratory: CTAB, normal chest expansion Gastrointestinal: soft, normal bowel sounds Neurological: no new deficit Psychiatric: normal affect, normal behavior, A&O x 3 Hosp A/P - Plan 59-year-old female patient with a history of multiple sclerosis arthritis presenting with worsening weakness and a fall today. Generalized weakness Status post ground-level fall Mechanical fall -X-ray of the hip showed no fractures but recommended MRI in 5 to 10 days if ongoing pain. -CT of the hip with noncontrast showed again no fracture recommendation for MRI in 10 days -Orthopedic following with us MS -stable -Neurology consult note reviewed -However MRI report suggested that no abnormal enhancement to suggest active demyelination and she has signal abnormalities in the white matter largely stable -I will continue with the Decadron to cover for Covid Gram-negative UTI Started on ceftriaxonewe will continue Follow-up on sensitivity Rhabdomyolysis CK elevated at 606 Robaxin and Ultram as needed CODE STATUSfull code VT prophylaxisLovenox 8th Patient is not able to move much is ongoing or worsening left leg pain. -Radiologist recommended MRI 10 days later but given her ongoing symptoms will get the MRI done Sed rate and CRP -Continue with physical therapy -If her insurance allowed she may benefit with inpatient rehab 9th Inflammatory markers are high. Will get MRI scan to make sure there is no o steomyelitis as CT scan suggested some lucency. Ongoing physical therapy.
--- NOTE | 2020-10-02 16:41 | MRI ---
MRI Lower Ext Jt Rt WO Con History: Hip pain Comparison: Pelvis CT September 28, 2020. Hip radiograph September 28, 2020 Findings: Bones: No acute fracture or malalignment. No contusion. Moderate degenerative disc space disease at L5/S1. Muscles: Small volume edema within the right gluteus sask[place] muscles and adjacent soft tissue likely sequelae contusion. No fascial degloving injury. Low-grade edema within the right quadratus femoris muscle and right obturator internus muscle. Mild tendinous strain of the right iliopsoas. Low-grade strain of the right adductor musculature. Labrum: Extensive intrasubstance tear of the anterior and superior labrum. Tendons: Rectus femoris tendon is intact. Low-grade tendinosis and interstitial tearing of the right gluteus medius tendon. Soft tissues: Large left greater trochanteric bursa effusion. Intrapelvic soft tissues are without fr ee fluid or other abnormality. No dilated loops of bowel. Impression: 1. Likely soft tissue contusion of the right gluteus s[place] muscle and adjacent soft tissues. No sig nificant intramuscular hematoma. 2. Low-grade strain of the right obturator internus, iliopsoas, and abductor muscles. The iliopsoas e marlene extends craniad to the field of view to the lumbar origin. 3. Extensive tear throughout the anterior and superior labrum. 4. Large left greater trochanteric bursa effusion. 5. No acute fracture, malalignment, or osseous contusion. 6. Mild ischiofemoral impingement. 7. Moderate partial tearing, incompletely imaged, of the left gluteus minimus and medius muscles from the ilium.
[2020-10-02] MEDS: cefTRIAXone\\ROCEPHIN 1 GM in Sodium Chloride 0.9% 100 ML IVPB SCH (16:53)
[2020-10-03] MEDS: Sodium Chloride 0.9% 1,000 ML IV SCH ×3 (00:50→20:37)
[2020-10-03] MEDS: HYDROcodone/Acetaminophen 5/325 mg Tablet PO PRN ×3 (03:53→20:36)
[2020-10-03] MEDS: Enoxaparin Sodium 40 MG/0.4 ML SYRINGE SC SCH ×2 (08:15→20:38)
[2020-10-03] MEDS: Cholecalciferol (Vitamin D3) 400 UNITS TAB PO SCH (08:16)
[2020-10-03] MEDS: Zinc Sulfate 220 MG CAP PO SCH (08:16)
[2020-10-03] MEDS: Ascorbic Acid 500 mg Chewable Tablet PO SCH (08:16)
[2020-10-03] MEDS: Senokot S 8.6-50 MG TAB PO SCH ×2 (08:16→20:36)
[2020-10-03] MEDS: Amlodipine 5 MG TAB PO SCH ×2 (08:16→20:35)
[2020-10-03] MEDS: Dexamethasone 4 mg/ml Vial SLOW IVP SCH (08:17)
[2020-10-03] MEDS ORDERED: Bisacodyl 10 MG SUPP PR PRN (10:35)
--- NOTE | 2020-10-03 13:37 | PDOC.HOSPP ---
- Subjective Encounter Date: 10/03/20 Encounter Time: 11:00 Subjective: Go[place] seen this morning MRI report reviewed. I discussed with orthopedic surgeon. And no intervention. Discussed with community case manager. To since she is Covid positive is difficult to find the rehab. But we are going to try to send her to the rehab. - Objective Vital Signs & Weight: Vital Signs (12 hours) Temp Pulse Resp BP Pulse Ox 10/03/20 08:20 96 10/03/20 07:22 98.2 F 70 16 133/71 96 Weight Weight 155 lb 3 oz I&O: 10/02/20 10/03/20 10/04/20 06:59 06:59 06:59 Intake Total 1600 Output Total 2750 Balance -1150 Result Diagrams: 09/29/20 04:40 09/30/20 11:40 Hospitalist ROS - Medication Medications: Active Medications Generic Name Dose Route Start Last Admin Trade Name Freq PRN Reason Stop Dose Admin Acetaminophen 650 mg 09/29/20 23:43 10/01/20 05:06 Acetaminophen 325 Mg Tab PO 650 mg Q4H PRN Administration Headache/Fever or Pain Hydrocodone Bitart/Acetaminophen 1 tab 10/01/20 13:41 10/03/20 09:35 Hydrocodone/Acetaminophen 5/325 Mg Tablet PO 1 tab Q6H PRN Administration Pain (5-10) Amlodipine Besylate 5 mg 09/30/20 21:00 10/03/20 08:16 Amlodipine 5 Mg Tab PO 5 mg BID BLAKE Administration Ascorbic Acid 1,000 mg 09/29/20 09:00 10/03/20 08:16 Ascorbic Acid 500 Mg Chewable Tablet PO 1,000 mg DAILY BLAKE Administration Bisacodyl 10 mg 10/03/20 10:35 10/03/20 11:23 Bisacodyl 10 Mg Supp HI 10 mg BIDPRN PRN Administration Constipation Cholecalciferol 400 units 09/29/20 09:00 10/03/20 08:16 Cholecalciferol (Vitamin D3) 400 Units Tab PO 400 units DAILY BLAKE Administration Dexamethasone 6 mg 09/30/20 09:00 10/03/20 08:17 Dexamethasone 4 Mg/Ml Vial SLOW IVP 6 mg DAILY BLAKE Administration Enoxaparin Sodium 40 mg 09/29/20 21:00 10/03/20 08:15 Enoxaparin Sodium 40 Mg/0.4 Ml Syringe SC 40 mg BID BLAKE Administration Ceftriaxone Sodium 1 gm/ 100 mls @ 200 mls/hr 09/29/20 19:00 10/02/20 16:53 Sodium Chloride IVPB 100 mls Q24HR BLAKE Administration Sodium Chloride 1,000 mls @ 100 mls/hr 09/29/20 07:00 10/03/20 09:41 Normal Saline 0.9% IV 1,000 mls .Q10H BLAKE Administration Ondansetron HCl 4 mg 10/01/20 09:35 10/01/20 09:46 Ondansetron Pf 4 Mg/2 Ml Vial IVP 4 mg Q6H PRN Administration Nausea/Vomiting Senna/Docusate Sodium 1 tab 10/01/20 21:00 10/03/20 08:16 Senokot S 8.6-50 Mg Tab PO 1 tab BID BLAKE Administration Sodium Chloride 10 ml 10/01/20 21:00 10/03/20 08:18 Flush - Normal Saline 10 Ml Syringe IVF 10 ml Q12HR BLAKE Administration Zinc Sulfate 220 mg 09/29/20 09:00 10/03/20 08:16 Zinc Sulfate 220 Mg Cap PO 220 mg DAILY BLAKE Administration Hospitalist Exam Vitals: Vital Signs (12 hours) Temp Pulse Resp BP Pulse Ox 10/03/20 08:20 96 10/03/20 07:22 98.2 F 70 16 133/71 96 Weight Weight 155 lb 3 oz General Appearance: NAD, awake alert Eye: PERRL ENT: normocephalic atraumatic Neck: supple Heart: RRR Respiratory: CTAB, normal chest expansion Gastrointestinal: soft, normal bowel sounds Extremities - other findings: Left hip and leg weakness 3 out of 5 in strength Neurological: cranial nerve grossly intact Psychiatric: normal affect, normal behavior, A&O x 3 Hosp A/P - Plan 59-year-old female patient with a history of multiple sclerosis arthritis presenting with worsening weakness and a fall today. Generalized weakness Status post ground-level fall Mechanical fall -X-ray of the hip showed no fractures but recommended MRI in 5 to 10 days if on going pain. -CT of the hip with noncontrast showed again no fracture recommendation for MRI in 10 days -Orthopedic following with us MS -stable -Neurology consult note reviewed -However MRI report suggested that no abnormal enhancement to suggest active demyelination and she has signal abnormalities in the white matter largely stable -I will continue with the Decadron to cover for Covid Gram-negative UTI Started on ceftriaxonewe will continue Follow-up on sensitivity Rhabdomyolysis CK elevated at 606 Robaxin and Ultram as needed CODE STATUSfull code VT prophylaxisLovenox 8th Patient is not able to move much is ongoing or worsening left leg pain. -Radiologist recommended MRI 10 days later but given her ongoing symptoms will get the MRI done Sed rate and CRP -Continue with physical therapy -If her insurance allowed she may benefit with inpatient rehab 9th Inflammatory markers are high. Will get MRI scan to make sure there is no osteomyelitis as CT scan suggested some lucency. Ongoing physical therapy. 10th MRI report reviewed. Right gluteus saskia muscle with the soft tissue contusion probably intramuscular hematoma -Large left carotid trochanteric bursa effusion Mild ischiofemoral impingement I discussed with orthopedic surgeon. And no intervention. Discussed with community case manager. since she is Covid positive, it is difficult to find the rehab. But we are going to try to send her to the rehab. If that is not successful will consider home health with physical therapy.
[2020-10-03] MEDS: cefTRIAXone\\ROCEPHIN 1 GM in Sodium Chloride 0.9% 100 ML IVPB SCH (17:05)
[2020-10-04] MEDS: HYDROcodone/Acetaminophen 5/325 mg Tablet PO PRN (04:33)
[2020-10-04] MEDS: Methocarbamol 500 MG TAB PO PRN (04:34)
[2020-10-04] MEDS: Sodium Chloride 0.9% 1,000 ML IV SCH ×2 (05:29→14:45)
[2020-10-04] MEDS: Amlodipine 5 MG TAB PO SCH ×2 (08:23→21:05)
[2020-10-04] MEDS: Ascorbic Acid 500 mg Chewable Tablet PO SCH (08:23)
[2020-10-04] MEDS: Zinc Sulfate 220 MG CAP PO SCH (08:23)
[2020-10-04] MEDS: Cholecalciferol (Vitamin D3) 400 UNITS TAB PO SCH (08:23)
[2020-10-04] MEDS: Dexamethasone 4 mg/ml Vial SLOW IVP SCH (08:23)
[2020-10-04] MEDS: Senokot S 8.6-50 MG TAB PO SCH ×2 (08:24→21:06)
[2020-10-04] MEDS: Enoxaparin Sodium 40 MG/0.4 ML SYRINGE SC SCH ×2 (08:24→21:06)
--- NOTE | 2020-10-04 13:40 | PDOC.HOSPP ---
- Subjective Encounter Date: 10/04/20 Encounter Time: 09:45 Subjective: Patient seen this morning she is getting cleaned up. I discussed with her the orthopedic plan of no intervention. I also discussed with the telehealth case manager. Patient being Covid positive difficult to find placement likely on Thursday. - Objective Vital Signs & Weight: Vital Signs (12 hours) Temp Pulse Resp BP BP Pulse Ox 10/04/20 08:23 74 133/79 10/04/20 07:04 98.4 F 71 18 112/58 L 95 Weight Weight 155 lb 3 oz I&O: 10/03/20 10/04/20 10/05/20 06:59 06:59 06:59 Intake Total 1600 2020 Output Total 2750 1750 Balance -1150 270 Result Diagrams: 09/29/20 04:40 09/30/20 11:40 Hospitalist ROS - Medication Medications: Active Medications Generic Name Dose Route Start Last Admin Trade Name Freq PRN Reason Stop Dose Admin Acetaminophen 650 mg 09/29/20 23:43 10/01/20 05:06 Acetaminophen 325 Mg Tab PO 650 mg Q4H PRN Administration Headache/Fever or Pain Hydrocodone Bitart/Acetaminophen 1 tab 10/01/20 13:41 10/04/20 04:33 Hydrocodone/Acetaminophen 5/325 Mg Tablet PO 1 tab Q6H PRN Administration Pain (5-10) Amlodipine Besylate 5 mg 09/30/20 21:00 10/04/20 08:23 Amlodipine 5 Mg Tab PO 5 mg BID BLAKE Administration Ascorbic Acid 1,000 mg 09/29/20 09:00 10/04/20 08:23 Ascorbic Acid 500 Mg Chewable Tablet PO 1,000 mg DAILY BLAKE Administration Bisacodyl 10 mg 10/03/20 10:35 10/03/20 11:23 Bisacodyl 10 Mg Supp IN 10 mg BIDPRN PRN Administration Constipation Cholecalciferol 400 units 09/29/20 09:00 10/04/20 08:23 Cholecalciferol (Vitamin D3) 400 Units Tab PO 400 units DAILY BLAKE Administration Dexamethasone 6 mg 09/30/20 09:00 10/04/20 08:23 Dexamethasone 4 Mg/Ml Vial SLOW IVP 6 mg DAILY BLAKE Administration Enoxaparin Sodium 40 mg 09/29/20 21:00 10/04/20 08:24 Enoxaparin Sodium 40 Mg/0.4 Ml Syringe SC 40 mg BID BLAKE Administration Ceftriaxone Sodium 1 gm/ 100 mls @ 200 mls/hr 09/29/20 19:00 10/03/20 17:05 Sodium Chloride IVPB 100 mls Q24HR BLAKE Administration Sodium Chloride 1,000 mls @ 100 mls/hr 09/29/20 07:00 10/04/20 05:29 Normal Saline 0.9% IV 1,000 mls .Q10H BLAKE Administration Methocarbamol 500 mg 09/30/20 14:38 10/04/20 04:34 Methocarbamol 500 Mg Tab PO 500 mg QID PRN Administration Muscle Spasm Ondansetron HCl 4 mg 10/01/20 09:35 10/01/20 09:46 Ondansetron Pf 4 Mg/2 Ml Vial IVP 4 mg Q6H PRN Administration Nausea/Vomiting Senna/Docusate Sodium 1 tab 10/01/20 21:00 10/04/20 08:24 Senokot S 8.6-50 Mg Tab PO Not Given BID BLAKE Sodium Chloride 10 ml 10/01/20 21:00 10/04/20 08:24 Flush - Normal Saline 10 Ml Syringe IVF Not Given Q12HR BLAKE Zinc Sulfate 220 mg 09/29/20 09:00 10/04/20 08:23 Zinc Sulfate 220 Mg Cap PO 220 mg DAILY BLAKE Administration Hospitalist Exam Vitals: Vital Signs (12 hours) Temp Pulse Resp BP BP Pulse Ox 10/04/20 08:23 74 133/79 10/04/20 07:04 98.4 F 71 18 112/58 L 95 Weight Weight 155 lb 3 oz General Appearance: NAD, awake alert Eye: PERRL ENT: normocephalic atraumatic Neck: supple Heart: RRR Respiratory: CTAB, normal chest expansion Gastrointestinal: soft, normal bowel sounds Neurological: no focal deficits Psychiatric: A&O x 3 Hosp A/P - Plan 59-year-old female patient with a history of multiple sclerosis arthritis pres enting with worsening weakness and a fall today. Generalized weakness Status post ground-level fall Mechanical fall -X-ray of the hip showed no fractures but recommended MRI in 5 to 10 days if ongoing pain. -CT of the hip with noncontrast showed again no fracture recommendation for MRI in 10 days -Orthopedic following with us MS -stable -Neurology consult note reviewed -However MRI report suggested that no abnormal enhancement to suggest active demyelination and she has signal abnormalities in the white matter largely stable -I will continue with the Decadron to cover for Covid Gram-negative UTI Started on ceftriaxonewe will continue Follow-up on sensitivity Rhabdomyolysis CK elevated at 606 Robaxin and Ultram as needed CODE STATUSfull code VT prophylaxisLovenox 8th Patient is not able to move much is ongoing or worsening left leg pain. -Radiologist recommended MRI 10 days later but given her ongoing symptoms will get the MRI done Sed rate and CRP -Continue with physical therapy -If her insurance allowed she may benefit with inpatient rehab 9th Inflammatory markers are high. Will get MRI scan to make sure there is no osteomyelitis as CT scan suggested some lucency. Ongoing physical therapy. MRI report reviewed. Right gluteus saskia muscle with the soft tissue contusion probably intramuscular hematoma -Large left carotid trochanteric bursa effusion Mild ischiofemoral impingement I discussed with orthopedic surgeon. And no intervention. Discussed with telehealth case manager. since she is Covid positive, it is difficult to find the rehab. But we are going to try to send her to the rehab. If that is not successful will consider home health with physical therapy. I discussed with her the orthopedic plan of no intervention. I also discussed with the telehealth case manager. Patient being Covid positive difficult to find placement - likely on Thursday.
[2020-10-04] MEDS: cefTRIAXone\\ROCEPHIN 1 GM in Sodium Chloride 0.9% 100 ML IVPB SCH (18:07)
[2020-10-05] MEDS: Sodium Chloride 0.9% 1,000 ML IV SCH ×2 (02:47→12:05)
[2020-10-05] MEDS: HYDROcodone/Acetaminophen 5/325 mg Tablet PO PRN ×2 (05:41→22:04)
[2020-10-05] MEDS: Amlodipine 5 MG TAB PO SCH ×2 (09:22→21:53)
[2020-10-05] MEDS: Ascorbic Acid 500 mg Chewable Tablet PO SCH (09:22)
[2020-10-05] MEDS: Zinc Sulfate 220 MG CAP PO SCH (09:22)
[2020-10-05] MEDS: Cholecalciferol (Vitamin D3) 400 UNITS TAB PO SCH (09:22)
[2020-10-05] MEDS: Dexamethasone 4 mg/ml Vial SLOW IVP SCH (09:22)
[2020-10-05] MEDS: Senokot S 8.6-50 MG TAB PO SCH ×2 (09:22→21:53)
[2020-10-05] MEDS: Enoxaparin Sodium 40 MG/0.4 ML SYRINGE SC SCH ×2 (09:23→21:53)
--- NOTE | 2020-10-05 15:03 | PDOC.HOSPP ---
- Subjective Encounter Date: 10/05/20 Encounter Time: 10:45 Subjective: Patient seen this morning she is well. Nursing staff nearby. She states that she has ongoing hip discomfort. She is able to stand and sit in the chair for few hours yesterday. But not able to ambulate. Physical therapy following with us. - Objective Vital Signs & Weight: Vital Signs (12 hours) Temp Pulse Resp BP Pulse Ox 10/05/20 09:22 72 10/05/20 07:03 98.5 F 72 18 123/57 L 96 Weight Weight 155 lb 3 oz I&O: 10/04/20 10/05/20 10/06/20 06:59 06:59 06:59 Intake Total 2019 Output Total 1750 Balance 270 Result Diagrams: 09/29/20 04:40 09/30/20 11:40 Hospitalist ROS - Medication Medications: Active Medications Generic Name Dose Route Start Last Admin Trade Name Freq PRN Reason Stop Dose Admin Acetaminophen 650 mg 09/29/20 23:43 10/01/20 05:06 Acetaminophen 325 Mg Tab PO 650 mg Q4H PRN Administration Headache/Fever or Pain Hydrocodone Bitart/Acetaminophen 1 tab 10/01/20 13:41 10/05/20 05:41 Hydrocodone/Acetaminophen 5/325 Mg Tablet PO 1 tab Q6H PRN Administration Pain (5-10) Amlodipine Besylate 5 mg 09/30/20 21:00 10/05/20 09:22 Amlodipine 5 Mg Tab PO 5 mg BID BLAKE Administration Ascorbic Acid 1,000 mg 09/29/20 09:00 10/05/20 09:22 Ascorbic Acid 500 Mg Chewable Tablet PO 1,000 mg DAILY BLAKE Administration Bisacodyl 10 mg 10/03/20 10:35 10/03/20 11:23 Bisacodyl 10 Mg Supp [place] 10 mg BIDPRN PRN Administration Constipation Cholecalciferol 400 units 09/29/20 09:00 10/05/20 09:22 Cholecalciferol (Vitamin D3) 400 Units Tab PO 400 units DAILY BLAKE Administration Dexamethasone 6 mg 09/30/20 09:00 10/05/20 09:22 Dexamethasone 4 Mg/Ml Vial SLOW IVP 6 mg DAILY BLAKE Administration Enoxaparin Sodium 40 mg 09/29/20 21:00 10/05/20 09:23 Enoxaparin Sodium 40 Mg/0.4 Ml Syringe SC 40 mg BID BLAKE Administration Ceftriaxone Sodium 1 gm/ 100 mls @ 200 mls/hr 09/29/20 19:00 10/04/20 18:07 Sodium Chloride IVPB 100 mls Q24HR BLAKE Administration Sodium Chloride 1,000 mls @ 100 mls/hr 09/29/20 07:00 10/05/20 12:05 Normal Saline 0.9% IV Not Given .Q10H BLAKE Methocarbamol 500 mg 09/30/20 14:38 10/04/20 04:34 Methocarbamol 500 Mg Tab PO 500 mg QID PRN Administration Muscle Spasm Ondansetron HCl 4 mg 10/01/20 09:35 10/01/20 09:46 Ondansetron Pf 4 Mg/2 Ml Vial IVP 4 mg Q6H PRN Administration Nausea/Vomiting Senna/Docusate Sodium 1 tab 10/01/20 21:00 10/05/20 09:22 Senokot S 8.6-50 Mg Tab PO 1 tab BID BLAKE Administration Sodium Chloride 10 ml 10/01/20 21:00 10/05/20 09:23 Flush - Normal Saline 10 Ml Syringe IVF 10 ml Q12HR BLAKE Administration Zinc Sulfate 220 mg 09/29/20 09:00 10/05/20 09:22 Zinc Sulfate 220 Mg Cap PO 220 mg DAILY BLAKE Administration Hospitalist Exam Vitals: Vital Signs (12 hours) Temp Pulse Resp BP Pulse Ox 10/05/20 09:22 72 10/05/20 07:03 98.5 F 72 18 123/57 L 96 Weight Weight 155 lb 3 oz General Appearance: NAD, awake alert Eye: PERRL ENT: normocephalic atraumatic Neck: supple Heart: RRR, normal peripheral pulses Respiratory: CTAB, normal chest expansion Gastrointestinal: soft, normal bowel sounds Neurological: cranial nerve grossly intact, no new deficit Psychiatric: normal affect, normal behavior, A&O x 3 Hosp A/P - Plan 59-year-old female patient with a history of multiple sclerosis arthritis presenting with worsening weakness and a fall today. Generalized weakness Status post ground-level fall Mechanical fall -X-ray of the hip showed no fractures but recommended MRI in 5 to 10 days if ongoing pain. -CT of the hip with noncontrast showed again no fracture recommendation for MRI in 10 days -Orthopedic following with us MS -stable -Neurology consult note reviewed -However MRI report suggested that no abnormal enhancement to suggest active demyelination and she has signal abnormalities in the white matter largely stable -I will continue with the Decadron to cover for Covid Gram-negative UTI--Klebsiella march sensitive Started on ceftriaxoneswitched to ciprofloxacin-- stop date on October 10 Rhabdomyolysis CK elevated at 606 Robaxin and Ultram as needed CODE STATUSfull code VT prophylaxisLovenox MRI report reviewed. Right gluteus saskia muscle with the soft tissue contusion probably intramuscular hematoma -Large left carotid trochanteric bursa effusion Mild ischiofemoral impingement I discussed with orthopedic surgeon. And no intervention. Discussed with piano case and bench assembler. since she is Covid positive, it is difficult to find the rehab. But we are going to try to send her to the rehab. If that is not successful will consider home health with physical therapy. I discussed with her the orthopedic's plan of no intervention. I also discussed with the piano case and bench assembler. Patient being Covid positive difficult to find placement - likely on Thursday. -On Cipro for Klebsiella UTI -stop on
[2020-10-05] MEDS: Ciprofloxacin 500 MG TAB PO SCH (21:54)
[2020-10-06] MEDS: Sodium Chloride 0.9% 1,000 ML IV SCH ×3 (01:37→23:15)
[2020-10-06] MEDS: Methocarbamol 500 MG TAB PO PRN (04:13)
[2020-10-06] MEDS: Ciprofloxacin 500 MG TAB PO SCH ×2 (06:15→20:52)
[2020-10-06] MEDS: Cholecalciferol (Vitamin D3) 400 UNITS TAB PO SCH (08:30)
[2020-10-06] MEDS: Senokot S 8.6-50 MG TAB PO SCH ×2 (08:30→20:52)
[2020-10-06] MEDS: Amlodipine 5 MG TAB PO SCH ×2 (08:30→20:52)
[2020-10-06] MEDS: Dexamethasone 4 mg/ml Vial SLOW IVP SCH (08:30)
[2020-10-06] MEDS: Ascorbic Acid 500 mg Chewable Tablet PO SCH (08:30)
[2020-10-06] MEDS: Enoxaparin Sodium 40 MG/0.4 ML SYRINGE SC SCH ×2 (08:30→20:53)
[2020-10-06] MEDS: Zinc Sulfate 220 MG CAP PO SCH (08:30)
[2020-10-06] MEDS: HYDROcodone/Acetaminophen 5/325 mg Tablet PO PRN ×2 (08:38→23:15)
[2020-10-06] MEDS: Ondansetron PF 4 MG/2 ML Vial IVP PRN (09:00)
--- NOTE | 2020-10-06 18:43 | PDOC.HOSPP ---
- Subjective Encounter Date: 10/06/20 Encounter Time: 18:54 Subjective: F/u : COVID The patient states she is doing better. Her left leg hurts, right calf feels sore. She did exercises in the bed. She is willing to go to rehab in [place]. Prior to admission she was ambulating with a walker She denies shortness of breath or cough - Objective Vital Signs & Weight: Vital Signs (12 hours) Temp Pulse Resp BP Pulse Ox 10/06/20 08:30 72 10/06/20 08:00 98.0 F 70 20 143/72 H 97 Weight Weight 155 lb 3 oz I&O: 10/05/20 10/06/20 10/07/20 06:59 06:59 06:59 Intake Total 2800 Output Total 3100 Balance -300 Result Diagrams: 09/29/20 04:40 09/30/20 11:40 Hospitalist ROS - Medication Medications: Active Medications Generic Name Dose Route Start Last Admin Trade Name Freq PRN Reason Stop Dose Admin Acetaminophen 650 mg 09/29/20 23:43 10/01/20 05:06 Acetaminophen 325 Mg Tab PO 650 mg Q4H PRN Administration Headache/Fever or Pain Hydrocodone Bitart/Acetaminophen 1 tab 10/01/20 13:41 10/06/20 08:38 Hydrocodone/Acetaminophen 5/325 Mg Tablet PO 1 tab Q6H PRN Administration Pain (5-10) Amlodipine Besylate 5 mg 09/30/20 21:00 10/06/20 08:30 Amlodipine 5 Mg Tab PO 5 mg BID BLAKE Administration Ascorbic Acid 1,000 mg 09/29/20 09:00 10/06/20 08:30 Ascorbic Acid 500 Mg Chewable Tablet PO 1,000 mg DAILY BLAKE Administration Bisacodyl 10 mg 10/03/20 10:35 10/03/20 11:23 Bisacodyl 10 Mg Supp [place] 10 mg BIDPRN PRN Administration Constipation Cholecalciferol 400 units 09/29/20 09:00 10/06/20 08:30 Cholecalciferol (Vitamin D3) 400 Units Tab PO 400 units DAILY BLAKE Administration Ciprofloxacin 500 mg 10/05/20 20:00 10/06/20 06:15 Ciprofloxacin 500 Mg Tab PO 500 mg 0600,2000 BLAKE Administration Dexamethasone 6 mg 09/30/20 09:00 10/06/20 08:30 Dexamethasone 4 Mg/Ml Vial SLOW IVP 6 mg DAILY BLAKE Administration Enoxaparin Sodium 40 mg 09/29/20 21:00 10/06/20 08:30 Enoxaparin Sodium 40 Mg/0.4 Ml Syringe SC 40 mg BID BLAKE Administration Sodium Chloride 1,000 mls @ 100 mls/hr 09/29/20 07:00 10/06/20 08:38 Normal Saline 0.9% IV 1,000 mls .Q10H BLAKE Administration Methocarbamol 500 mg 09/30/20 14:38 10/06/20 04:13 Methocarbamol 500 Mg Tab PO 500 mg QID PRN Administration Muscle Spasm Ondansetron HCl 4 mg 10/01/20 09:35 10/06/20 09:00 Ondansetron Pf 4 Mg/2 Ml Vial IVP 4 mg Q6H PRN Administration Nausea/Vomiting Senna/Docusate Sodium 1 tab 10/01/20 21:00 10/06/20 08:30 Senokot S 8.6-50 Mg Tab PO 1 tab BID BLAKE Administration Sodium Chloride 10 ml 10/01/20 21:00 10/06/20 08:31 Flush - Normal Saline 10 Ml Syringe IVF 10 ml Q12HR BLAKE Administration Zinc Sulfate 220 mg 09/29/20 09:00 10/06/20 08:30 Zinc Sulfate 220 Mg Cap PO 220 mg DAILY BLAKE Administration Hospitalist Exam Vitals: Vital Signs (12 hours) Temp Pulse Resp BP Pulse Ox 10/06/20 08:30 72 10/06/20 08:00 98.0 F 70 20 143/72 H 97 Weight Weight 155 lb 3 oz General Appearance: NAD, awake alert Eye: PERRL, anicteric sclera ENT: normocephalic atraumatic, no oropharyngeal lesions Neck: no JVD Heart: RRR, no murmur, no gallops, no rubs Respiratory: CTAB, no wheezes, no rales, no ronchi Gastrointestinal: soft, non-tender, non-distended, normal bowel sounds, no splenomegaly Extremities: no cyanosis, no clubbing, no edema Skin: normal turgor, no lesions, no rashes Neurological: cranial nerve grossly intact, normal sensation to touch, no focal deficits Neurological - other findings: diminished strength in lower extremities Musculoskeletal - other findings: can lift up right leg better than left .Dec ROM left. Hosp A/P - Plan MRI leg: extensive tear throughout anterior and superior labrum. Large left greater trochanteric bursa effusion. Moderate partial tearing of left gluteus minimus and medius muscles CT pelvis: no fracture Right hip X ray: tiny lucency in neck of femur which could represent fracture Brain MRI: no lesions MRI lower extremity right: edema right gluteus saskia. Low grade strain of right obturator internus, iliopsoas, and abductor muscles . Extensive tear throughout anterior and superior labrum. Large left greater trochanteric bursal effusion. Mild ischiofemoral impingement. moderate partial tearing of left gluteus medius and minimus This is a 59-year-old female patient with a history of arthritis, multiple sclerosis who came in today on account of weakness and a fall occurring early in the morning and was found to have a UTI #Right obturator internus/ileopsoas, abductor and anterior and superior labral tear #Trochanteric effusion on the left #Left glutemus medius and minimus tear #Mild ischeofemoral impingement - CT pelvis negative, hip Xray showed mild fracture. MRI showed extensive findings above. Ortho consulted, recommended no intervention. Rehab will be consulted Klebsiella UTI - continue cipro until 10/10 Rhabdomyolysis - CK 606 on 09/28. Will repeat, if normal will discontinue fluids MS - MRI brain showed no new lesions
[2020-10-07] MEDS: Ciprofloxacin 500 MG TAB PO SCH ×2 (04:53→20:27)
[2020-10-07] MEDS: Sodium Chloride 0.9% 1,000 ML IV SCH (04:56)
[2020-10-07] MEDS: HYDROcodone/Acetaminophen 5/325 mg Tablet PO PRN ×2 (06:23→20:28)
[2020-10-07] MEDS: Enoxaparin Sodium 40 MG/0.4 ML SYRINGE SC SCH ×2 (08:23→20:27)
[2020-10-07] MEDS: Dexamethasone 4 mg/ml Vial SLOW IVP SCH (08:23)
[2020-10-07] MEDS: Cholecalciferol (Vitamin D3) 400 UNITS TAB PO SCH (08:24)
[2020-10-07] MEDS: Senokot S 8.6-50 MG TAB PO SCH ×2 (08:24→20:27)
[2020-10-07] MEDS: Ascorbic Acid 500 mg Chewable Tablet PO SCH (08:24)
[2020-10-07] MEDS: Zinc Sulfate 220 MG CAP PO SCH (08:24)
[2020-10-07] MEDS: Amlodipine 5 MG TAB PO SCH ×2 (08:24→20:27)
[2020-10-07] MEDS ORDERED: DALFAMPRIDINE PO SCH (13:01)
--- NOTE | 2020-10-07 16:41 | PDOC.HOSPP ---
- Subjective Encounter Date: 10/07/20 Encounter Time: 12:00 Subjective: Patient has pain on the left leg when lifting it up too high. She also complains that she feels she has pain on her gluteal area from sitting too much. She did bed exercises, hasn't seen PT today yet She states she ran out of her MS medicines a few weeks ago, was getting them at [facility]. Her medicine is not on formulary here. Discussed with Dr. Hand, no other options are available COVID + - patient has no cough or shortness of breath . She was diagnosed 9 days ago - Objective Vital Signs & Weight: Vital Signs (12 hours) Temp Pulse Resp BP Pulse Ox 10/07/20 08:24 76 10/07/20 08:00 97.6 F 76 20 112/68 96 Weight Weight 155 lb 3 oz I&O: 10/06/20 10/07/20 10/08/20 06:59 06:59 06:59 Intake Total 2800 1680 Output Total 3100 1900 Balance -300 -220 Result Diagrams: 09/29/20 04:40 09/30/20 11:40 Hospitalist ROS - Review of Systems Constitutional: denies: fever, chills - Medication Medications: Active Medications Generic Name Dose Route Start Last Admin Trade Name Freq PRN Reason Stop Dose Admin Acetaminophen 650 mg 09/29/20 23:43 10/01/20 05:06 Acetaminophen 325 Mg Tab PO 650 mg Q4H PRN Administration Headache/Fever or Pain Hydrocodone Bitart/Acetaminophen 1 tab 10/01/20 13:41 10/07/20 06:23 Hydrocodone/Acetaminophen 5/325 Mg Tablet PO 1 tab Q6H PRN Administration Pain (5-10) Amlodipine Besylate 5 mg 09/30/20 21:00 10/07/20 08:24 Amlodipine 5 Mg Tab PO Not Given BID BLAKE Ascorbic Acid 1,000 mg 09/29/20 09:00 10/07/20 08:24 Ascorbic Acid 500 Mg Chewable Tablet PO 1,000 mg DAILY BLAKE Administration Bisacodyl 10 mg 10/03/20 10:35 10/03/20 11:23 Bisacodyl 10 Mg Supp [place] 10 mg BIDPRN PRN Administration Constipation Cholecalciferol 400 units 09/29/20 09:00 10/07/20 08:24 Cholecalciferol (Vitamin D3) 400 Units Tab PO 400 units DAILY BLAKE Administration Ciprofloxacin 500 mg 10/05/20 20:00 10/07/20 04:53 Ciprofloxacin 500 Mg Tab PO 500 mg 599,1999 [facility] Administration Enoxaparin Sodium 40 mg 09/29/20 21:00 10/07/20 08:23 Enoxaparin Sodium 40 Mg/0.4 Ml Syringe SC 40 mg BID BLAKE Administration Methocarbamol 500 mg 09/30/20 14:38 10/06/20 04:13 Methocarbamol 500 Mg Tab PO 500 mg QID PRN Administration Muscle Spasm Ondansetron HCl 4 mg 10/01/20 09:35 10/06/20 09:00 Ondansetron Pf 4 Mg/2 Ml Vial IVP 4 mg Q6H PRN Administration Nausea/Vomiting Senna/Docusate Sodium 1 tab 10/01/20 21:00 10/07/20 08:24 Senokot S 8.6-50 Mg Tab PO 1 tab BID BLAKE Administration Zinc Sulfate 220 mg 09/29/20 09:00 10/07/20 08:24 Zinc Sulfate 220 Mg Cap PO 220 mg DAILY BLAKE Administration Hospitalist Exam Vitals: Vital Signs (12 hours) Temp Pulse Resp BP Pulse Ox 10/07/20 08:24 76 10/07/20 08:00 97.6 F 76 20 112/68 96 Weight Weight 155 lb 3 oz General Appearance: NAD, awake alert Eye: PERRL, anicteric sclera ENT: normocephalic atraumatic, no oropharyngeal lesions Neck: supple, symmetric, no JVD, no thyromegaly Heart: RRR, no murmur, no gallops, no rubs Respiratory: CTAB, no wheezes, no rales, no ronchi Gastrointestinal: soft, non-tender, non-distended, normal bowel sounds Extremities: no cyanosis, no clubbing, no edema Skin: normal turgor, no lesions, no rashes Neurological: cranial nerve grossly intact, normal sensation to touch, no weakness Musculoskeletal: normal tone, normal strength, no muscle wasting Hosp A/P - Plan MRI leg: extensive tear throughout anterior and superior labrum. Large left greater trochanteric bursa effusion. Moderate partial tearing of left gluteus minimus and medius muscles CT pelvis: no fracture Right hip X ray: tiny lucency in neck of femur which could represent fracture Brain MRI: no lesions MRI lower extremity right: edema right gluteus saskia. Low grade strain of right obturator internus, iliopsoas, and abductor muscles . Extensive tear throughout anterior and superior labrum. Large left greater trochanteric bursal effusion. Mild ischiofemoral impingement. moderate partial tearing of left gluteus medius and minimus This is a 59-year-old female patient with a history of arthritis, multiple sclerosis who came in today on account of weakness and a fall occurring early in the morning and was found to have a UTI #Right obturator internus/ileopsoas, abductor and anterior and superior labral tear #Trochanteric effusion on the left #Left glutemus medius and minimus tear #Mild ischeofemoral impingement - CT pelvis negative, hip Xray showed mild fracture. MRI showed extensive findings above. Ortho consulted, recommended no intervention. Rehab consult is p ending Klebsiella UTI - continue cipro until 10/10 Rhabdomyolysis - CK normalized. IV fluids will be discontinued COVID+ - will discontinue dexamethasone since not requiring oxygen . Continue supportive care. Can d/c isolation tomorrow MS - MRI brain showed no new lesions. Patient has been off her MS medicine for three weeks. Discussed with Dr. Hand, no other treatment options available currently
[2020-10-08] MEDS ORDERED: Ciprofloxacin 500 MG TAB ONE ×2 (04:49→07:53)
[2020-10-08] MEDS ORDERED: HYDROcodone/Acetaminophen 5/325 mg Tablet ONE (06:05)
[2020-10-08] MEDS ORDERED: Enoxaparin Sodium 40 MG/0.4 ML SYRINGE ONE (07:53)
[2020-10-08] MEDS ORDERED: Amlodipine 5 MG TAB ONE (07:54)
[2020-10-08] MEDS ORDERED: Senokot S 8.6-50 MG TAB ONE (07:54)
[2020-10-08] MEDS ORDERED: Ascorbic Acid 500 mg Chewable Tablet ONE (07:55)
[2020-10-08] MEDS ORDERED: Zinc Sulfate 220 MG CAP ONE (07:56)
[2020-10-08] MEDS ORDERED: Cholecalciferol 1,000 UNITS (25 MCG) TAB ONE (07:56)
[2020-10-08] MEDS: Enoxaparin Sodium 40 MG/0.4 ML SYRINGE SC SCH ×2 (09:29→20:43)
[2020-10-08] MEDS: Zinc Sulfate 220 MG CAP PO SCH (09:29)
[2020-10-08] MEDS: Ascorbic Acid 500 mg Chewable Tablet PO SCH (09:29)
[2020-10-08] MEDS: Amlodipine 5 MG TAB PO SCH ×2 (09:29→20:43)
[2020-10-08] MEDS: Senokot S 8.6-50 MG TAB PO SCH ×2 (09:29→20:44)
[2020-10-08] MEDS: Ciprofloxacin 500 MG TAB PO SCH ×2 (11:11→20:43)
[2020-10-08] MEDS: Cholecalciferol (Vitamin D3) 400 UNITS TAB PO SCH (11:13)
--- NOTE | 2020-10-08 14:20 | PDOC.HOSPP ---
- Subjective Encounter Date: 10/08/20 Encounter Time: 11:00 Subjective: F/u: COVID The patient has no cough or shortness of breath. She states her left ankle hurts today. She stood up with PT yesterday and hopes to ambulate into the chair today . Last week she sat in the chair for a few hours She states her right leg she is able to move more than before The patient extremely happy with her care and wants to thank all ER nurses and nursing staff on floor MS - patient states that she called Dr Hand office last week who suggested a pharmacy near [facility] to refill her MS medicine. She says her medicine is manually compounded. Discussed trying to call Dr hand office to see what pha rmacy this is - Objective Vital Signs & Weight: Vital Signs (12 hours) Temp Pulse Resp BP Pulse Ox 10/08/20 09:30 97 10/08/20 08:00 98.3 F 76 20 134/85 97 Weight Weight 155 lb 3 oz I&O: 10/07/20 10/08/20 10/09/20 06:59 06:59 06:59 Intake Total 1680 Output Total 1900 Balance -220 Result Diagrams: 09/29/20 04:40 09/30/20 11:40 Hospitalist ROS - Review of Systems Constitutional: denies: fever, chills - Medication Medications: Active Medications Generic Name Dose Route Start Last Admin Trade Name Freq PRN Reason Stop Dose Admin Acetaminophen 650 mg 09/29/20 23:43 10/01/20 05:06 Acetaminophen 325 Mg Tab PO 650 mg Q4H PRN Administration Headache/Fever or Pain Hydrocodone Bitart/Acetaminophen 1 tab 10/01/20 13:41 10/07/20 20:28 Hydrocodone/Acetaminophen 5/325 Mg Tablet PO 1 tab Q6H PRN Administration Pain (5-10) Amlodipine Besylate 5 mg 09/30/20 21:00 10/08/20 09:29 Amlodipine 5 Mg Tab PO 5 mg BID BLAKE Administration Ascorbic Acid 1,000 mg 09/29/20 09:00 10/08/20 09:29 Ascorbic Acid 500 Mg Chewable Tablet PO 1,000 mg DAILY BLAKE Administration Bisacodyl 10 mg 10/03/20 10:35 10/03/20 11:23 Bisacodyl 10 Mg Supp [place] 10 mg BIDPRN PRN Administration Constipation Cholecalciferol 400 units 09/29/20 09:00 10/08/20 11:13 Cholecalciferol (Vitamin D3) 400 Units Tab PO Not Given DAILY BLAKE Ciprofloxacin 500 mg 10/05/20 20:00 10/08/20 11:11 Ciprofloxacin 500 Mg Tab PO Not Given [facility] Enoxaparin Sodium 40 mg 09/29/20 21:00 10/08/20 09:29 Enoxaparin Sodium 40 Mg/0.4 Ml Syringe SC 40 mg BID BLAKE Administration Methocarbamol 500 mg 09/30/20 14:38 10/06/20 04:13 Methocarbamol 500 Mg Tab PO 500 mg QID PRN Administration Muscle Spasm Ondansetron HCl 4 mg 10/01/20 09:35 10/06/20 09:00 Ondansetron Pf 4 Mg/2 Ml Vial IVP 4 mg Q6H PRN Administration Nausea/Vomiting Senna/Docusate Sodium 1 tab 10/01/20 21:00 10/08/20 09:29 Senokot S 8.6-50 Mg Tab PO 1 tab BID BLAKE Administration Zinc Sulfate 220 mg 09/29/20 09:00 10/08/20 09:29 Zinc Sulfate 220 Mg Cap PO 220 mg DAILY BLAKE Administration Hospitalist Exam Vitals: Vital Signs (12 hours) Temp Pulse Resp BP Pulse Ox 10/08/20 09:30 97 10/08/20 08:00 98.3 F 76 20 134/85 97 Weight Weight 155 lb 3 oz General Appearance: NAD, awake alert Eye: PERRL, anicteric sclera ENT: normocephalic atraumatic, no oropharyngeal lesions Neck: no JVD Heart: RRR, no murmur, no gallops, no rubs Respiratory: CTAB, no wheezes, no rales Gastrointestinal: soft, non-tender, non-distended, normal bowel sounds Extremities: no cyanosis, no clubbing, no edema Extremities - other findings: no pain with movement of left ankle. Some pain lifting left leg. Skin: normal turgor, no lesions, no rashes Musculoskeletal - other findings: normal ROM of right leg with no tenderness Psychiatric: normal affect, normal behavior Hosp A/P - Plan MRI leg: extensive tear throughout anterior and superior labrum. Large left greater trochanteric bursa effusion. Moderate partial tearing of left gluteus minimus and medius muscles CT pelvis: no fracture Right hip X ray: tiny lucency in neck of femur which could represent fracture Brain MRI: no lesions MRI lower extremity right: edema right gluteus saskia. Low grade strain of right obturator internus, iliopsoas, and abductor muscles . Extensive tear throughout anterior and superior labrum. Large left greater trochanteric bursal effusion. Mild ischiofemoral impingement. moderate partial tearing of left gluteus medius and minimus This is a 59-year-old female patient with a history of arthritis, multiple sclerosis who came in today on account of weakness and a fall occurring early in the morning and was found to have a UTI #Right obturator internus/ileopsoas, abductor and anterior and superior labral tear #Trochanteric effusion on the left #Left glutemus medius and minimus tear #Mild ischeofemoral impingement - CT pelvis negative, hip Xray showed mild fracture. MRI showed extensive findings above. Ortho consulted, recommended no intervention. Rehab consult is pending Klebsiella UTI - continue cipro until 10/10 Rhabdomyolysis - CK normalized. IV fluids will be discontinued COVID+ - will discontinue dexamethasone since not requiring oxygen . Continue supp ortive care. Can d/c isolation tomorrow MS - MRI brain showed no new lesions. Patient has been off her MS medicine for three weeks. Discussed with Dr. Hand, no other treatment options available currently - call their office when open to refill her medicine
[2020-10-08] MEDS: HYDROcodone/Acetaminophen 5/325 mg Tablet PO PRN ×2 (15:36→22:15)
[2020-10-08] MEDS: Methocarbamol 500 MG TAB PO PRN (20:42)
[2020-10-09] MEDS: HYDROcodone/Acetaminophen 5/325 mg Tablet PO PRN ×2 (05:32→19:58)
[2020-10-09] MEDS: Ciprofloxacin 500 MG TAB PO SCH ×2 (05:32→19:58)
[2020-10-09] MEDS: Cholecalciferol (Vitamin D3) 400 UNITS TAB PO SCH (08:27)
[2020-10-09] MEDS: Senokot S 8.6-50 MG TAB PO SCH ×2 (08:27→19:58)
[2020-10-09] MEDS: Enoxaparin Sodium 40 MG/0.4 ML SYRINGE SC SCH ×2 (08:27→19:59)
[2020-10-09] MEDS: Ascorbic Acid 500 mg Chewable Tablet PO SCH (08:27)
[2020-10-09] MEDS: Zinc Sulfate 220 MG CAP PO SCH (08:27)
[2020-10-09] MEDS: Amlodipine 5 MG TAB PO SCH ×2 (08:28→19:58)
--- NOTE | 2020-10-09 20:40 | PDOC.HOSPP ---
- Subjective Encounter Date: 10/09/20 Encounter Time: 11:00 Subjective: F/u: terrence WANG THe patient complains of some pain in her right ankle. Otherwise no complaints. Patient was approved at [facility] today, however they had no beds - Objective Vital Signs & Weight: Vital Signs (12 hours) Temp Pulse Resp BP BP Pulse Ox 10/09/20 20:05 98.2 F 85 18 135/65 96 10/09/20 19:58 72 121/61 Weight Weight 155 lb 3 oz I&O: 10/08/20 10/09/20 10/10/20 06:59 06:59 06:59 Intake Total 1150 720 Output Total 300 600 Balance 850 120 Result Diagrams: 09/29/20 04:40 09/30/20 11:40 Hospitalist ROS - Review of Systems Constitutional: denies: fever, chills - Medication Medications: Active Medications Generic Name Dose Route Start Last Admin Trade Name Freq PRN Reason Stop Dose Admin Acetaminophen 650 mg 09/29/20 23:43 10/01/20 05:06 Acetaminophen 325 Mg Tab PO 650 mg Q4H PRN Administration Headache/Fever or Pain Hydrocodone Bitart/Acetaminophen 1 tab 10/01/20 13:41 10/09/20 19:58 Hydrocodone/Acetaminophen 5/325 Mg Tablet PO 1 tab Q6H PRN Administration Pain (5-10) Amlodipine Besylate 5 mg 09/30/20 21:00 10/09/20 19:58 Amlodipine 5 Mg Tab PO 5 mg BID BLAKE Administration Ascorbic Acid 1,000 mg 09/29/20 09:00 10/09/20 08:27 Ascorbic Acid 500 Mg Chewable Tablet PO 1,000 mg DAILY BLAKE Administration Bisacodyl 10 mg 10/03/20 10:35 10/03/20 11:23 Bisacodyl 10 Mg Supp PA 10 mg BIDPRN PRN Administration Constipation Cholecalciferol 400 units 09/29/20 09:00 10/09/20 08:27 Cholecalciferol (Vitamin D3) 400 Units Tab PO 400 units DAILY BLAKE Administration Ciprofloxacin 500 mg 10/05/20 20:00 10/09/20 19:58 Ciprofloxacin 500 Mg Tab PO 500 mg 06,1999 BLAKE Administration Enoxaparin Sodium 40 mg 09/29/20 21:00 10/09/20 19:59 Enoxaparin Sodium 40 Mg/0.4 Ml Syringe SC 40 mg BID BLAKE Administration Methocarbamol 500 mg 09/30/20 14:38 10/08/20 20:42 Methocarbamol 500 Mg Tab PO 500 mg QID PRN Administration Muscle Spasm Ondansetron HCl 4 mg 10/01/20 09:35 10/06/20 09:00 Ondansetron Pf 4 Mg/2 Ml Vial IVP 4 mg Q6H PRN Administration Nausea/Vomiting Senna/Docusate Sodium 1 tab 10/01/20 21:00 10/09/20 19:58 Senokot S 8.6-50 Mg Tab PO 1 tab BID BLAKE Administration Sodium Chloride 10 ml 10/01/20 09:45 10/09/20 08:28 Flush - Normal Saline 10 Ml Syringe IVF 10 ml PRN PRN Administration Saline Flush Zinc Sulfate 220 mg 09/29/20 09:00 10/09/20 08:27 Zinc Sulfate 220 Mg Cap PO 220 mg DAILY BLAKE Administration Hospitalist Exam Vitals: Vital Signs (12 hours) Temp Pulse Resp BP BP Pulse Ox 10/09/20 20:05 98.2 F 85 18 135/65 96 10/09/20 19:58 72 121/61 Weight Weight 155 lb 3 oz General Appearance: NAD, awake alert Eye: PERRL, anicteric sclera ENT: normocephalic atraumatic, no oropharyngeal lesions Neck: no JVD Heart: RRR, no murmur, no gallops, no rubs Respiratory: CTAB, no wheezes, no rales, no ronchi Gastrointestinal: soft, non-tender, non-distended Extremities: no cyanosis, no clubbing, no edema Neurological: cranial nerve grossly intact, normal sensation to touch Musculoskeletal - other findings: dec ROM left leg, difficulty lifting it up Psychiatric: normal affect, normal behavior, A&O x 3 Hosp A/P - Plan MRI leg: extensive tear throughout anterior and superior labrum. Large left greater trochanteric bursa effusion. Moderate partial tearing of left gluteus minimus and medius muscles CT pelvis: no fracture Right hip X ray: tiny lucency in neck of femur which could represent fracture Brain MRI: no lesions MRI lower extremity right: edema right gluteus [place]. Low grade strain of right obturator internus, iliopsoas, and abductor muscles . Extensive tear throughout anterior and superior labrum. Large left greater trochanteric bursal effusion. Mild ischiofemoral impingement. moderate partial tearing of left gluteus medius and minimus This is a 59-year-old female patient with a history of arthritis, multiple sclerosis who came in today on account of weakness and a fall occurring early in the morning and was found to have a UTI #Right obturator internus/ileopsoas, abductor and anterior and superior labral t ear #Trochanteric effusion on the left #Left glutemus medius and minimus tear #Mild ischeofemoral impingement - CT pelvis negative, hip Xray showed mild fracture. MRI showed extensive fi ndings above. Ortho consulted, recommended no intervention and outpatient follow up with Dr. Escobar - currently she still has left sided weakness on the leg - patient is approved for [facility], d/c when bed is available Klebsiella UTI - continue cipro until 10/10 Rhabdomyolysis - CK normalized. IV fluids will be discontinued COVID+ - asymptomatic, isolation discontinued MS - MRI brain showed no new lesions. Patient has been off her MS medicine for three weeks. Discussed with Dr. Hand, no other treatment options available currently - call their office when open to refill her medicine
[2020-10-10] MEDS: HYDROcodone/Acetaminophen 5/325 mg Tablet PO PRN (02:29)
[2020-10-10] MEDS: Ciprofloxacin 500 MG TAB PO SCH (05:02)
[2020-10-10 07:14] LABS: Hemoglobin 14.3 g/dL (12.0-16.0); Mean Corpuscular HGB CONC 33.3 g/dL (32.0-36.0); Mean Corpuscular Hemoglobin 33.5 pg (27.0-31.0); Mean Platelet Volume 7.6 fL (7.4-10.4); Platelet Count 310 thou/uL (130-400); RBC Distribution Width 12.1 % (11.5-14.5); Red Blood Cell (RBC) Count 4.25 mill/uL (4.20-5.40); White Blood Cell (WBC) Count 8.4 thou/uL (4.8-10.8)
[2020-10-10 07:17] LABS: Anion Gap 12 mmol/L (10-20); BUN (Urea Nitrogen) 16 mg/dL (9.8-20.1); Calc. Creatinine Clearance 122 mL/min (70-130); Calcium 8.8 mg/dL (7.8-10.44); Carbon Dioxide 28 mmol/L (22-29); Chloride 95 mmol/L (98-107); Glucose 97 mg/dL (70-105); Potassium 3.3 mmol/L (3.5-5.1); Sodium 132 mmol/L (136-145)
[2020-10-10] MEDS ORDERED: Potassium Chloride 20 MEQ TAB PO SCH (08:15)
[2020-10-10] MEDS: Ascorbic Acid 500 mg Chewable Tablet PO SCH (09:15)
[2020-10-10] MEDS: Cholecalciferol (Vitamin D3) 400 UNITS TAB PO SCH (09:15)
[2020-10-10] MEDS: Zinc Sulfate 220 MG CAP PO SCH (09:15)
[2020-10-10] MEDS: Amlodipine 5 MG TAB PO SCH (09:15)
[2020-10-10] MEDS: Enoxaparin Sodium 40 MG/0.4 ML SYRINGE SC SCH (09:16)
[2020-10-10] MEDS: Senokot S 8.6-50 MG TAB PO SCH (09:16)
[2020-10-10] MEDS: Ondansetron PF 4 MG/2 ML Vial IVP PRN (10:44)
[2020-10-10 13:30] VITALS: BP 123/66; TEMP 98.2
--- NOTE | 2020-10-10 21:24 | PDOC.DS.DS ---
Provider Date of Admission: 09/30/20 12:59 Date of Discharge: 10/10/20 Admitting Provider: Wilmer Doty MD Primary Care Physician: YUKI QUINTANA MD Course Hospital Course: Discharge Diagnoses: 1. Right obturator internus/ileopsoas, abductor and anterior and superior labral tear 2.Trochanteric effusion on the left 3. Left glutemus medius and minimus tear 4. Mild ischeofemoral impingement 5. Klebsiella UTI 6. Rhabdomyolysis 7. COVID+ Brief HPI: This is a 59 year old female with past medical history of multiple sclerosis who presented to the ER when she fell and was unable to get up. She presented with a CK level of 606. SHe tested positive for COVID. UA was positive as well so she was admitted for IV antibiotics. Hospital Course: the patient was treated IV ceftriaxone from 09/29 to 10/04, then oral ciprofloxacin from 10/05 to 10/10. Urine culture grew Klebsiella UTI and Aerococcus that was march-sensitive. She was given IV fluids for rhabdomyolysis which resolved. THe patient complained of severe pain on her left leg. Hip X ray showed mild fracture, CT pelvis showed no acute finfdings. MRI showed right obturator internus/ileopsoas, abductor and anterior and superior labral tear; there was trochanteric effusion ont he left, left gluteus medius and minimus tear and mild ischeofemoral impingement. Orthopedics was consulted and recommended no acute intervention and they will follow up her as an outpatient. She was seen by physical therapy. THey recommended rehab. She still has left leg weakness, but her right leg has good range of motion Of note, the patient also tested positive for COVId, but was asymptomatic and did not require treatment for this. She was kept on isolation for ten days. She will be discharged to [facility]. Multiple sclerosis: the patient ran out of her medicine, she stated that this was manually compounded at a pharmacy ([facility] but they stopped doing it. I discussed with Dr. Hand who stated there were no other alternative drugs she could use. I tried calling his office to speak to them about what other pharmacy can fill her medication but they were closed. I also called her PCP's office and they were closed. Pertinent Studies: MRI leg: extensive tear throughout anterior and superior labrum. Large left greater trochanteric bursa effusion. Moderate partial tearing of left gluteus minimus and medius muscles CT pelvis: no fracture Right hip X ray: tiny lucency in neck of femur which could represent fracture Brain MRI: no lesions MRI lower extremity right: edema right gluteus [place]. Low grade strain of right obturator internus, iliopsoas, and abductor muscles . Extensive tear throughout anterior and superior labrum. Large left greater trochanteric bursal effusion. Mild ischiofemoral impingement. moderate partial tearing of left gluteus medius and minimus Resuscitation Status: 09/29/20 02:50 Resuscitation Status Routine Resuscitation Status: FULL: Full Resuscitation Lab Results: 10/10/20 06:11 10/10/20 06:11 Abnormal Lab Results - Last 48 hrs 10/10/20 06:11: Sodium 132 L, Potassium 3.3 L, Chloride 95 L, Creatinine 0.55 L 10/10/20 06:11: MCV 101.0 H, MCH 33.5 H Microbiology - Entire Visit 09/28/20 21:16 Urine voided Urine Culture - Final Klebsiella pneumoniae ssp pneu Aerococcus urinae Vitals: Vital Signs (12 hours) Temp Pulse Resp BP Pulse Ox 10/10/20 13:20 98.2 F 88 16 123/66 97 Weight Admit Weight 155 lb 3 oz Weight 155 lb 3 oz Physical Exam: The patient was seen and examined on the day of discharge. General Appearance: NAD, awake alert Eye: PERRL, anicteric sclera ENT: normocephalic atraumatic, no oropharyngeal lesions Neck: supple, symmetric, no JVD Respiratory: CTAB, no wheezes, no rales, no ronchi Cardiovascular: RRR, no murmur, no gallops, no rubs Gastrointestinal: soft, non-tender, non-distended, normal bowel sounds Extremities: no cyanosis, no clubbing, no edema Skin: normal turgor, no lesions, no rashes Neurological: cranial nerve grossly intact, normal sensation to touch, no weakness, no focal deficits Musculoskeletal: normal tone, normal strength, no muscle wasting PSYCH: normal affect, normal behavior, A&O x 3, oriented to person, oriented to place Plan Prescriptions: Amlodipine [Norvasc] 5 mg PO BID #60 tab Methocarbamol [Robaxin] 500 mg PO QID PRN #28 tab PRN Reason: Muscle Spasm Acetaminophen [Tylenol Regular Strength] 650 mg PO Q4H PRN #56 tab PRN Reason: Headache/Fever Or Pain Home Medications: Medication Instructions Recorded Confirmed Type Aspirin [Aspir-Low] 81 mg PO DAILY 11/13/16 09/29/20 History Dalfampridine [4-Aminopyridine] 5 mg PO TID 11/13/16 09/29/20 History Meloxicam [Mobic] 7.5 mg PO Q6HR PRN 11/13/16 09/29/20 History Acetaminophen [Tylenol] 325 mg PO Q4HR 09/29/20 09/29/20 History Acetaminophen [Tylenol Regular 650 mg PO Q4H PRN #56 tab 10/09/20 Rx Strength] Amlodipine [Norvasc] 5 mg PO BID #60 tab 10/09/20 Rx Methocarbamol [Robaxin] 500 mg PO QID PRN #28 tab 10/09/20 Rx Allergies: No Known Allergies Allergy (Verified 09/29/20 01:30) Discharge Instructions:: You presented with a Klebsiella UTI. You received 10 days of antibiotics. Youa lso had rhabdomyolysis which resolved with IV fluids Yo were also COVID+. You were removed off isolation on 10/08. You also had a tear of your labral area , fluid on your left hip and a tear of of your left gluteus medius and minimums muscles and some impingement of your ischeofemoral area. Orthopedics stated no intervention is needed. You will be discharged to [facility]. You can take methacarbamol qid for muscle spasms and tylenol as needed for pain and meloxicam . Follow up with orthopedics as an outpatient. Activity:: Orthopedic Limitations (TTWB RLE with Walker) Nourishment:: Heart Healthy Diet Therapies:: Physical Therapy Equipment/Supplies:: [facility] Referrals: Rl Escobar MD [Active] - 14 Days (F/U in 2 weeks with repeat hip films) YUKI QUINTANA MD [Primary Care Provider] - Flaco Hand MD [Active] - Disposition: REHAB FACILITY Quality CORE MEASURES:: N/A
--- NOTE | 2020-10-11 04:06 | PQF ---
Dear :Ailyn Mota Date 10/11/2020 Please exercise your independent, professional judgment in responding to the clarification form. Clinical indicators are provided on the bottom of this form for your review Can you please further clarify the etiology of weakness? Please check appropriate box(es): [ X] Traumatic Rhabdomyolysis [ ] Non Traumatic Rhabdomyolysis [ ] COVID infection [ ] UTI [ ] MS Flare [ X] Other diagnosis please specify____Muscle tears as mentioned in dc summary [ ] Unable to determine Physician Signature: Date/Time: For continuity of documentation, please document condition throughout progress notes and discharge summary. Thank You. To be completed by CDI/Coding staff for physician review: Present Clinical Indicators - Signs / Symptoms / Labs Results and Location in Medical Record [ x ] Came in today on account of weakness and fall occurring early in the morning H and P pg.1 [ x ] Generalized weakness: UTI/ MS flare H and P pg.4 [ x ] Rhabdomyolysis CK elevated at 606 H and P pg.5 [ x ] Tested for COVID19, so most likely that can also play a role in generalized weakness Consult pg.6 [ x ] WBC: 09/28=10.7 09/29=6.9 10/10=8.4 Laboratory 09/28 [ x ] SARS: Detected A Laboratory 09/28 [ x ] Urine culture: Klebsiella pneumonia ssp pneu and Aerococcus urinae Laboratory 09/28 Present Risk Factors Results and Location in Medical Record [ x ] Multiple sclerosis H and P pg.1 [ x ] Rhabdomyolysis H and P pg.1 [ x ] s/p fall Consult pg.1 [ x ] COVID+ DS pg.1 Present Treatments Results and Location in Medical Record [ x ] IV Fluids MAR [ x ] CK monitoring Laboratory [ x ] Urine culture Microbiology 09/28 [ x ] Morphine 2gm IV MAR [ x ] Rocephin 1gm IV MAR [ x ] Dexamethasone 6gm IV MAR [ x ] Ciprofloxacin 500mg PO MAR [ x ] Orthopedic Consult Consult 09/28 [employer] Signature: Thony Mahoney Phone #: ext [phone] Date 10/11/2020 This is a permanent part of the Medical Record [facility]
== END 2020-10-10 16:06 | DRG 564 ==
LOC: ERS 16:51 → T4-A 22:07 → OBSVTOIN 09-30 12:59
PROVIDERS: ADMIT Student in an Organized Health Care Education/Training Program; ATTEND Internal Medicine
PROC: 8E0ZXY6 Isolation (ICD-10-PCS; principal; 2020-09-30)
DX: T79.6XXA Traumatic ischemia of muscle, initial encounter (principal); U07.1 COVID-19; N39.0 Urinary tract infection, site not specified; S76.012A Strain of muscle, fascia and tendon of left hip, initial encounter; G35 Multiple sclerosis; M19.90 Unspecified osteoarthritis, unspecified site; B96.1 Klebsiella pneumoniae [K. pneumoniae] as the cause of diseases classified elsewhere; S73.102A Unspecified sprain of left hip, initial encounter; W19.XXXA Unspecified fall, initial encounter; M25.452 Effusion, left hip; M25.852 Other specified joint disorders, left hip; Z79.82 Long term (current) use of aspirin; Z79.899 Other long term (current) drug therapy; Z90.49 Acquired absence of other specified parts of digestive tract
CPT/HCPCS: 36415; 70553; 72192; 80048; 80053; 81003; 81015; 82550; 82728; 84484; 85025; 85027; 85379; 85652; 86140; 87077; 87086; 87186; 87635; 93005; 96365; 96366; 96372; 96375; A9579; G0378; J0696; J1100; J1650; J2270; J2405; J3490; U0003; U0005

== ENCOUNTER 2022-04-03 11:25 | Inpatient (IN) | payer MEDICARE, BC ==
[2022-04-03] MEDS ORDERED: Lorazepam (BATCHED) 2 MG/ML SYR ONE (12:17)
[2022-04-03 12:30] LABS: #Basophils 0.1 thou/uL (0.0-0.2); #Eosinphils 0.1 thou/uL (0.0-0.7); #Lymphocytes 3.6 thou/uL (1.20-3.40); #Monocytes 0.5 thou/uL (0.11-0.59); #Neutrophils 8.9 thou/uL (1.40-6.50); %Basophils 0.5 % (0.0-1.0); %Eosinophils 0.6 % (0.0-10.0); %Lymphocytes 27.2 % (21.0-51.0); %Monocytes 3.7 % (0.0-10.0); Hemoglobin 13.6 g/dL (12.0-16.0); Mean Corpuscular HGB CONC 31.5 g/dL (32.0-36.0); Mean Corpuscular Hemoglobin 32.4 pg (27.0-31.0); Mean Platelet Volume 9.6 fL (7.4-10.4); Platelet Count 261 thou/uL (130-400); RBC Distribution Width 11.9 % (11.5-14.5); Red Blood Cell (RBC) Count 4.18 mill/uL (4.20-5.40); White Blood Cell (WBC) Count 13.1 thou/uL (4.8-10.8)
[2022-04-03 12:45] LABS: ALT (SGPT) 7 U/L (8-55); AST (SGOT) 13 U/L (5-34); Albumin 4.4 g/dL (3.4-4.8); Alkaline Phosphatase 49 U/L (40-110); Anion Gap 20 mmol/L (10-20); BUN (Urea Nitrogen) 16 mg/dL (9.8-20.1); Bilirubin, Total 0.6 mg/dL (0.2-1.2); Calc. Creatinine Clearance 0 mL/min (70-130); Calcium 10.5 mg/dL (7.8-10.44); Carbon Dioxide 26 mmol/L (23-31); Chloride 99 mmol/L (98-107); Estimated GFR 100; Globulin 3.9 g/dL (2.4-3.5); Glucose 189 mg/dL (80-115); Lipase 18 U/L (8-78); Potassium 3.9 mmol/L (3.5-5.1); Protein, Total 8.3 g/dL (5.8-8.1); Sodium 141 mmol/L (136-145)
[2022-04-03] MEDS ORDERED: cefTRIAXone\\ROCEPHIN 2 GM VIAL ONE (12:52)
[2022-04-03] MEDS ORDERED: Iopamidol-370 76% 500 ML 1 ML ONE (14:14)
[2022-04-03] MEDS ORDERED: methylPREDNISolone Sod Succ/PF 125 MG/2 ML VIAL ONE (15:21)
[2022-04-03 15:22] LABS: Bacteria/HPF 4+ HPF (None Seen); Bilirubin Negative (Negative); Blood, Urine Trace (Negative); Clarity Turbid (Clear); Glucose, Urine (Dipstick) 100 mg/dL (Negative); Ketone, Urine 20 mg/dL (Negative); Leukocyte 75 Leu/uL (Negative); Nitrite Negative (Negative); Protein, Urine (Dipstick) Negative (Neg-Trace); RBC/HPF 0-3 HPF (0-3); Specific Gravity, Urine 1.024 (1.002-1.036); Squamous Epithelial 0-3 HPF (0-3)
[2022-04-03 15:39] LABS: Lactic Acid 2.4 mmol/L (0.5-2.2)
[2022-04-03] MEDS ORDERED: Ondansetron PF 4 MG/2 ML Vial IVP PRN (16:27)
[2022-04-03] MEDS ORDERED: Acetaminophen 325 MG TAB PO PRN (16:27)
[2022-04-03] MEDS ORDERED: Meloxicam 7.5 MG TAB PO PRN (16:30)
[2022-04-03] MEDS ORDERED: Bisacodyl 10 MG SUPP PR PRN (16:34)
[2022-04-03 18:05] VITALS: BMI 13.5
[2022-04-03] MEDS: Sodium Chloride 0.9% 1,000 ML IV SCH (18:42)
[2022-04-03] MEDS: Amlodipine 5 MG TAB PO SCH (20:18)
[2022-04-04] MEDS: Sodium Chloride 0.9% 1,000 ML IV SCH (05:20)
[2022-04-04 06:41] LABS: #Lymphocytes 1.7 thou/uL (1.20-3.40); #Monocytes 0.7 thou/uL (0.11-0.59); #Neutrophils 10.6 thou/uL (1.40-6.50); %Basophils 0.3 % (0.0-1.0); %Eosinophils 0.1 % (0.0-10.0); %Lymphocytes 12.9 % (21.0-51.0); %Monocytes 5.3 % (0.0-10.0); %Neutrophils 81.4 % (42.0-75.0); Hemoglobin 11.4 g/dL (12.0-16.0); Mean Corpuscular HGB CONC 32.6 g/dL (32.0-36.0); Mean Corpuscular Hemoglobin 33.5 pg (27.0-31.0); Mean Platelet Volume 7.7 fL (7.4-10.4); Platelet Count 268 thou/uL (130-400); RBC Distribution Width 11.8 % (11.5-14.5); Red Blood Cell (RBC) Count 3.41 mill/uL (4.20-5.40)
[2022-04-04 06:55] LABS: Lactic Acid 1.3 mmol/L (0.5-2.2)
[2022-04-04 07:00] LABS: Anion Gap 13 mmol/L (10-20); BUN (Urea Nitrogen) 10 mg/dL (9.8-20.1); Calc. Creatinine Clearance 74 mL/min (70-130); Carbon Dioxide 24 mmol/L (23-31); Chloride 105 mmol/L (98-107); Estimated GFR 108; Glucose 91 mg/dL (80-115); Potassium 3.2 mmol/L (3.5-5.1); Sodium 139 mmol/L (136-145)
[2022-04-04] MEDS ORDERED: Potassium Chloride 20 MEQ TAB PO SCH (07:45)
[2022-04-04] MEDS: Docusate 100 MG CAP PO SCH (08:49)
[2022-04-04] MEDS: Amlodipine 5 MG TAB PO SCH ×2 (08:49→20:56)
[2022-04-04] MEDS: Aspirin 81 mg Enteric Coated Tablet PO SCH (08:49)
[2022-04-04] MEDS: Enoxaparin Sodium 30 MG/0.3 ML SYRINGE SC SCH (08:50)
[2022-04-04] MEDS: Polyethylene Glycol 3350 17 GM Packet PO SCH (08:50)
[2022-04-04] MEDS ORDERED: methylPREDNISolone Sod Succ/PF 125 MG/2 ML VIAL IVP SCH (09:00)
[2022-04-04] MEDS: DALFAMPRIDINE PO SCH ×3 (11:21→21:00)
[2022-04-04] MEDS: cefTRIAXone\\ROCEPHIN 1 GM in Sodium Chloride 0.9% 100 ML IVPB SCH (13:55)
[2022-04-05] MEDS: Aspirin 81 mg Enteric Coated Tablet PO SCH (08:17)
[2022-04-05] MEDS: Enoxaparin Sodium 30 MG/0.3 ML SYRINGE SC SCH (08:17)
[2022-04-05] MEDS: Amlodipine 5 MG TAB PO SCH ×2 (08:17→20:30)
[2022-04-05] MEDS: Docusate 100 MG CAP PO SCH (08:17)
[2022-04-05] MEDS: DALFAMPRIDINE PO SCH ×3 (08:17→20:30)
[2022-04-05] MEDS: Polyethylene Glycol 3350 17 GM Packet PO SCH (08:20)
[2022-04-05 10:24] LABS: Anion Gap 13 mmol/L (10-20); BUN (Urea Nitrogen) 15 mg/dL (9.8-20.1); Calc. Creatinine Clearance 70 mL/min (70-130); Carbon Dioxide 27 mmol/L (23-31); Chloride 101 mmol/L (98-107); Estimated GFR 106; Glucose 107 mg/dL (80-115); Potassium 3.3 mmol/L (3.5-5.1); Sodium 138 mmol/L (136-145)
[2022-04-05] MEDS: Potassium Chloride 20 MEQ TAB PO SCH ×2 (14:39→20:30)
[2022-04-05] MEDS: cefTRIAXone\\ROCEPHIN 1 GM in Sodium Chloride 0.9% 100 ML IVPB SCH (14:39)
[2022-04-06 06:33] LABS: #Lymphocytes 1.6 thou/uL (1.20-3.40); #Monocytes 0.7 thou/uL (0.11-0.59); #Neutrophils 10.6 thou/uL (1.40-6.50); %Basophils 0.2 % (0.0-1.0); %Eosinophils 0.1 % (0.0-10.0); %Lymphocytes 12.7 % (21.0-51.0); %Monocytes 5.4 % (0.0-10.0); %Neutrophils 81.7 % (42.0-75.0); Hemoglobin 12.8 g/dL (12.0-16.0); Mean Corpuscular Hemoglobin 32.3 pg (27.0-31.0); Mean Platelet Volume 7.6 fL (7.4-10.4); Platelet Count 310 thou/uL (130-400); RBC Distribution Width 12.2 % (11.5-14.5); Red Blood Cell (RBC) Count 3.97 mill/uL (4.20-5.40)
[2022-04-06 06:54] LABS: Anion Gap 11 mmol/L (10-20); BUN (Urea Nitrogen) 13 mg/dL (9.8-20.1); Calc. Creatinine Clearance 68 mL/min (70-130); Calcium 8.9 mg/dL (7.8-10.44); Carbon Dioxide 28 mmol/L (23-31); Chloride 102 mmol/L (98-107); Estimated GFR 106; Glucose 98 mg/dL (80-115); Magnesium 2.1 mg/dL (1.6-2.6); Phosphorus 3.2 mg/dL (2.3-4.7); Potassium 4.7 mmol/L (3.5-5.1); Sodium 136 mmol/L (136-145)
[2022-04-06] MEDS: Polyethylene Glycol 3350 17 GM Packet PO SCH (09:43)
[2022-04-06] MEDS: Docusate 100 MG CAP PO SCH (09:43)
[2022-04-06] MEDS: Enoxaparin Sodium 30 MG/0.3 ML SYRINGE SC SCH (09:43)
[2022-04-06] MEDS: Aspirin 81 mg Enteric Coated Tablet PO SCH (09:43)
[2022-04-06] MEDS: Amlodipine 5 MG TAB PO SCH ×2 (09:43→20:03)
[2022-04-06] MEDS: DALFAMPRIDINE PO SCH ×3 (09:44→20:03)
[2022-04-07] MEDS: Docusate 100 MG CAP PO SCH (09:14)
[2022-04-07] MEDS: Amlodipine 5 MG TAB PO SCH ×2 (09:15→20:41)
[2022-04-07] MEDS: Aspirin 81 mg Enteric Coated Tablet PO SCH (09:16)
[2022-04-07] MEDS: Polyethylene Glycol 3350 17 GM Packet PO SCH (09:16)
[2022-04-07] MEDS: Enoxaparin Sodium 30 MG/0.3 ML SYRINGE SC SCH (09:16)
[2022-04-07] MEDS: DALFAMPRIDINE PO SCH ×3 (09:16→20:41)
[2022-04-08] MEDS: Docusate 100 MG CAP PO SCH (08:59)
[2022-04-08] MEDS: Amlodipine 5 MG TAB PO SCH ×2 (09:00→19:47)
[2022-04-08] MEDS: Polyethylene Glycol 3350 17 GM Packet PO SCH (09:01)
[2022-04-08] MEDS: Aspirin 81 mg Enteric Coated Tablet PO SCH (09:01)
[2022-04-08] MEDS: Enoxaparin Sodium 30 MG/0.3 ML SYRINGE SC SCH (09:01)
[2022-04-08] MEDS: DALFAMPRIDINE PO SCH ×3 (09:02→19:47)
[2022-04-09] MEDS: Amlodipine 5 MG TAB PO SCH (09:10)
[2022-04-09] MEDS: Polyethylene Glycol 3350 17 GM Packet PO SCH (09:12)
[2022-04-09] MEDS: Docusate 100 MG CAP PO SCH (09:12)
[2022-04-09] MEDS: Enoxaparin Sodium 30 MG/0.3 ML SYRINGE SC SCH (09:12)
[2022-04-09] MEDS: Aspirin 81 mg Enteric Coated Tablet PO SCH (09:12)
[2022-04-09] MEDS: DALFAMPRIDINE PO SCH ×2 (09:13→16:00)
[2022-04-09 15:17] VITALS: BP 121/70; TEMP 98.2
== END 2022-04-09 18:48 | DRG 871 ==
LOC: SUATTDRO 11:25 → ERS 11:25 → T4-A 16:05
PROVIDERS: ADMIT Internal Medicine; ATTEND Internal Medicine
DX: A41.51 Sepsis due to Escherichia coli [E. coli] (principal); R65.20 Severe sepsis without septic shock; N39.0 Urinary tract infection, site not specified; Z20.822 Contact with and (suspected) exposure to COVID-19; E43 Unspecified severe protein-calorie malnutrition; Z16.19 Resistance to other specified beta lactam antibiotics; E87.2 Acidosis; Z68.1 Body mass index [BMI] 19.9 or less, adult; G35 Multiple sclerosis; I10 Essential (primary) hypertension; K59.00 Constipation, unspecified; F17.210 Nicotine dependence, cigarettes, uncomplicated; M19.90 Unspecified osteoarthritis, unspecified site; F12.10 Cannabis abuse, uncomplicated; Z90.49 Acquired absence of other specified parts of digestive tract; Z90.710 Acquired absence of both cervix and uterus; Z79.899 Other long term (current) drug therapy; Z79.82 Long term (current) use of aspirin; Z82.49 Family history of ischemic heart disease and other diseases of the circulatory system
CPT/HCPCS: 36415; 51702; 74177; 80048; 80053; 81003; 81015; 82550; 83605; 83690; 83735; 84100; 84484; 85025; 87040; 87077; 87086; 87186; 93005; 96374; 96375; J0696; J1650; J1956; J2060; J2930; J3490; J7050; Q9967; U0003; U0005

== ENCOUNTER 2022-04-13 02:43 | Emergency (ER) | payer MEDICARE, BC ==
[2022-04-13] MEDS ORDERED: Lorazepam (BATCHED) 2 MG/ML SYR ONE ×3 (02:50→04:00)
[2022-04-13] MEDS ORDERED: levETIRAcetam 500 MG/5 ML VIAL ONE (02:59)
[2022-04-13 03:42] LABS: #Eosinphils 0.1 thou/uL (0.0-0.7); #Lymphocytes 3.5 thou/uL (1.20-3.40); #Monocytes 0.8 thou/uL (0.11-0.59); #Neutrophils 7.2 thou/uL (1.40-6.50); %Basophils 0.4 % (0.0-1.0); %Eosinophils 0.5 % (0.0-10.0); %Lymphocytes 30.2 % (21.0-51.0); %Monocytes 6.8 % (0.0-10.0); Mean Corpuscular HGB CONC 33.5 g/dL (32.0-36.0); Mean Corpuscular Hemoglobin 34.2 pg (27.0-31.0); Mean Platelet Volume 7.2 fL (7.4-10.4); Platelet Count 410 thou/uL (130-400); Red Blood Cell (RBC) Count 3.79 mill/uL (4.20-5.40); White Blood Cell (WBC) Count 11.7 thou/uL (4.8-10.8)
[2022-04-13] MEDS ORDERED: Haloperidol Lactate 5 MG/ML VIAL ONE (03:43)
[2022-04-13 04:03] LABS: ALT (SGPT) 21 U/L (8-55); AST (SGOT) 19 U/L (5-34); Acetaminophen Less than 10.0 mcg/mL (10.0-30.0); Albumin 3.8 g/dL (3.4-4.8); Alcohol Less than 10 mg/dL (Less than 10); Alkaline Phosphatase 75 U/L (40-110); Anion Gap 22 mmol/L (10-20); BUN (Urea Nitrogen) 11 mg/dL (9.8-20.1); Bilirubin, Total 0.4 mg/dL (0.2-1.2); CK (CPK) 38 U/L (29-168); Calc. Creatinine Clearance 0 mL/min (70-130); Calcium 9.4 mg/dL (7.8-10.44); Carbon Dioxide 18 mmol/L (23-31); Chloride 99 mmol/L (98-107); Estimated GFR 100; Globulin 3.6 g/dL (2.4-3.5); Glucose 226 mg/dL (80-115); Lipase 19 U/L (8-78); Potassium 3.9 mmol/L (3.5-5.1); Protein, Total 7.4 g/dL (5.8-8.1); Salicylate Less than 8.0 mg/dL (15.0-30.0); Sodium 135 mmol/L (136-145)
[2022-04-13] MEDS ORDERED: diphenhydrAMINE 50 MG/ML VIAL ONE (04:12)
[2022-04-13] MEDS ORDERED: SODIUM CHLORIDE 0.9% IVPB SCH (04:15)
[2022-04-13] MEDS ORDERED: PHENOBARBITAL SODIUM IVPB SCH (04:15)
[2022-04-13] MEDS ORDERED: Propofol 1,000 MG/100 ML VIAL IV ONE (04:50)
[2022-04-13] MEDS ORDERED: Fentanyl 100 MCG/2 ML VIAL ONE (04:50)
[2022-04-13 04:51] LABS: Bilirubin Negative (Negative); Blood, Urine Negative (Negative); Clarity Turbid (Clear); Glucose, Urine (Dipstick) Normal (Negative); Ketone, Urine Negative (Negative); Leukocyte Negative Leu/uL (Negative); Nitrite Negative (Negative); Protein, Urine (Dipstick) Negative (Neg-Trace); Specific Gravity, Urine 1.015 (1.002-1.036); Urobilinogen Normal mg/dL (Less than 2); pH, Urine 7.5 (5.0-9.0)
[2022-04-13 05:02] LABS: Amphetamine Not Detected (NotDetected); Barbiturates Screen Not Detected (NotDetected); Benzodiazepine Screen Not Detected (NotDetected); Cocaine Metabolite Screen Not Detected (NotDetected); Methadone Not Detected (NotDetected); Methamphetamine Not Detected (NotDetected); Opiate Screen Detected (NotDetected); Oxycodone Screen Not Detected (NotDetected); Phencyclidine (PCP) Not Detected (NotDetected); THC/Cannabinoid Screen Detected (NotDetected); Tricyclic Screen Not Detected (NotDetected)
[2022-04-13 05:22] LABS: Actual Bicarbonate (HCO3a) 20.4 mEq/L (22-28); Analyzer IN Cardio ER; Base Excess (BEa) -3.1 mEq/L (-2.0 to +3.0); CO2 Tension 31.3 mmHg (35.0-45.0); Calcium, Ionized (arterial) 1.08 mmol/L (1.12-1.30); Carboxyhemoglobin (COHb) 0.7 gm% (0.0-3.0); Hemoglobin (Hb) 11.4 g/dL (12.0-16.0); O2 Tension (PaO2), arterial 301.6 mmHg (> 80.0); Potassium - ABG Lab 3.18 mmol/L (3.70-5.30); pH, Arterial 7.43 (7.35-7.45)
[2022-04-13 05:24] LABS: Puncture Site LBA
[2022-04-13 05:25] LABS: ALV-art Gradient 87.075 mmHg (0-20)
[2022-04-13] MEDS ORDERED: cefTRIAXone\\ROCEPHIN 2 GM VIAL ONE (05:31)
[2022-04-13] MEDS ORDERED: Dexamethasone 10 MG/ML VIAL ONE (05:31)
[2022-04-13 06:14] LABS: SARS-CoV-2 NAA Rapid Test Not Detected (NotDetected)
[2022-04-13 06:40] LABS: Lactic Acid 3.3 mmol/L (0.5-2.2)
== END 2022-04-13 07:57 | disposition short-term general hospital (02) ==
LOC: ERS 02:43
DX: G40.901 Epilepsy, unspecified, not intractable, with status epilepticus (principal); J96.90 Respiratory failure, unspecified, unspecified whether with hypoxia or hypercapnia; Z20.822 Contact with and (suspected) exposure to COVID-19; F17.210 Nicotine dependence, cigarettes, uncomplicated
CPT/HCPCS: 31500; 36556; 36600; 51701; 70450; 80053; 80306; 80307; 81003; 82140; 82550; 82805; 83605; 83690; 83880; 84146; 84484; 85025; 87040; 93005; 94002; 96361; 96365; 96366; 96368; 96375; 99291; J1953; J2060; U0002; 36415; 71045; 96374; J0696; J1100; J1200; J1630; J2560; J2704; J3010; J3490

== ENCOUNTER 2022-09-07 13:14 | Emergency (ER) | payer MEDICARE, BC ==
[2022-09-07 13:57] LABS: #Eosinphils 0.1 thou/uL (0.0-0.7); #Lymphocytes 1.8 thou/uL (1.20-3.40); #Monocytes 0.5 thou/uL (0.11-0.59); #Neutrophils 3.9 thou/uL (1.40-6.50); %Basophils 0.7 % (0.0-1.0); %Eosinophils 1.2 % (0.0-10.0); %Lymphocytes 28.6 % (21.0-51.0); %Monocytes 7.4 % (0.0-10.0); %Neutrophils 62.1 % (42.0-75.0); Hemoglobin 14.4 g/dL (12.0-16.0); Mean Corpuscular HGB CONC 33.9 g/dL (32.0-36.0); Mean Corpuscular Hemoglobin 33.8 pg (27.0-31.0); Mean Corpuscular Volume 99.6 fl (78.0-98.0); Platelet Count 279 10x3/uL (130-400); Red Blood Cell (RBC) Count 4.25 mill/uL (4.20-5.40); White Blood Cell (WBC) Count 6.3 10x3/uL (4.8-10.8)
[2022-09-07] MEDS ORDERED: Ondansetron PF 4 MG/2 ML Vial ONE (14:01)
[2022-09-07 14:12] LABS: ALT (SGPT) 8 U/L (8-55); AST (SGOT) 14 U/L (5-34); Albumin 4.2 g/dL (3.4-4.8); Alkaline Phosphatase 52 U/L (40-110); Anion Gap 12 mmol/L (10-20); BUN (Urea Nitrogen) 19 mg/dL (9.8-20.1); Bilirubin, Total 0.8 mg/dL (0.2-1.2); Calc. Creatinine Clearance 0 mL/min (70-130); Calcium 9.7 mg/dL (7.8-10.44); Carbon Dioxide 29 mmol/L (23-31); Chloride 99 mmol/L (98-107); Estimated GFR 103; Globulin 3.8 g/dL (2.4-3.5); Glucose 101 mg/dL (80-115); Lipase 38 U/L (8-78); Magnesium 2.1 mg/dL (1.6-2.6); Potassium 3.6 mmol/L (3.5-5.1); Sodium 136 mmol/L (136-145)
[2022-09-07 15:00] LABS: Bacteria/HPF 4+ HPF (None Seen); Bilirubin Negative (Negative); Blood, Urine 2+ (Negative); Clarity Turbid (Clear); Glucose, Urine (Dipstick) Normal (Negative); Ketone, Urine 20 mg/dL (Negative); Leukocyte 500 Leu/uL (Negative); Nitrite Negative (Negative); Protein, Urine (Dipstick) 20 mg/dL (Neg-Trace); RBC/HPF 0-3 HPF (0-3); Specific Gravity, Urine 1.016 (1.002-1.036); Squamous Epithelial 0-3 HPF (0-3); WBC/HPF 21-50 HPF (0-3)
== END 2022-09-07 16:26 | disposition home or self-care (01) ==
LOC: ERS 13:14
DX: N39.0 Urinary tract infection, site not specified (principal); R11.0 Nausea; R53.1 Weakness; I10 Essential (primary) hypertension; F17.210 Nicotine dependence, cigarettes, uncomplicated
CPT/HCPCS: 71045; 80053; 81003; 81015; 83690; 83735; 85025; 87077; 87086; 87186; 93005; 96374; J2405

== ENCOUNTER 2025-08-11 09:18 | Inpatient (IN) | payer MEDICARE ==
[2025-08-11 09:58] LABS: #Basophils 0.06 10x3/uL (0.0-0.2); #Eosinophils 0.19 10x3/uL (0.0-0.7); #Monocytes 0.53 10x3/uL (0.11-0.59); #Neutrophils 3.78 10x3/uL (1.40-6.50); %Basophils 0.9 % (0.0-1.0); %Eosinophils 2.9 % (0.0-10.0); %Lymphocytes 30.2 % (21.0-51.0); %Monocytes 8.1 % (0.0-10.0); %Neutrophils 57.7 % (42.0-75.0); Hematocrit 35.1 % (36.0-47.0); Hemoglobin 11.5 g/dL (12.0-16.0); Mean Corpuscular Hemoglobin 32.0 pg (27.0-31.0); Mean Corpuscular Volume 97.8 fL (78.0-98.0); Platelet Count 295 10x3/uL (130-400); Red Blood Cell (RBC) Count 3.59 mill/uL (4.20-5.40); White Blood Cell (WBC) Count 6.55 10x3/uL (4.8-10.8)
[2025-08-11 10:14] LABS: ALT (SGPT) Less than 7 U/L (Less than 34); AST (SGOT) 18 U/L (11-34); Albumin 3.6 g/dL (3.1-4.5); Alkaline Phosphatase 46 U/L (40-110); Anion Gap 14 mmol/L (10-20); BUN (Urea Nitrogen) 15 mg/dL (9.8-20.1); Bilirubin, Total 0.5 mg/dL (0.3-1.2); Calc. Creatinine Clearance 0 mL/min (70-130); Calcium 8.8 mg/dL (7.8-10.44); Carbon Dioxide 25 mmol/L (23-31); Chloride 103 mmol/L (98-107); Globulin 3.1 g/dL (2.4-3.5); Glucose 94 mg/dL (80-115); Potassium 3.7 mmol/L (3.5-5.1); Sodium 138 mmol/L (136-145)
[2025-08-11 11:27] LABS: Glucose, Urine (Dipstick) Unable to Interpret mg/dL (Negative); Leukocyte Unable to Interpret Leu/uL (Negative); Protein, Urine (Dipstick) Unable to Interpret mg/dL (Neg-Trace); Specific Gravity, Urine 1.025 (1.005-1.030)
[2025-08-11 11:28] LABS: Bacteria/HPF 1+ HPF (None Seen); CAUTI Indications for Culture Acute Hematuria; RBC/HPF Greater than 50 HPF (0-3)
[2025-08-11 11:29] LABS: Urine Culture Reflex No No
[2025-08-11 12:06] LABS: INR-International Normal Ratio 1.1; Prothrombin Time 13.8 sec (12.0-14.7)
[2025-08-11 12:07] LABS: PTT 33.7 sec (22.9-36.1)
[2025-08-11] MEDS ORDERED: cefTRIAXone (ROCEPHIN) 2 GM VIAL ONE (13:11)
[2025-08-11] MEDS ORDERED: Iopamidol-370 76% 500 ML MDV (1 ML CHARGE) ONE (13:28)
[2025-08-11 19:58] VITALS: BMI 14.0
[2025-08-11] MEDS ORDERED: Lidocaine 2% PF 100 mg/5 ml Syringe ONE (20:49)
[2025-08-11] MEDS ORDERED: PROPOFOL 20 ML ONE (20:49)
[2025-08-11] MEDS ORDERED: fentaNYL PF 100 MCG/2 ML SYRINGE ONE (20:49)
[2025-08-11] MEDS ORDERED: SUCCINYLCHOLINE/SOD CL,ISO/PF 200 MG/10 ML SYRINGE FS ONE (20:49)
[2025-08-11] MEDS ORDERED: Rocuronium Bromide 10 MG/ML (10ML VIAL) ONE (21:02)
[2025-08-11] MEDS ORDERED: SUGAMMADEX SODIUM 200 MG/2 ML VIAL ONE (21:25)
[2025-08-11] MEDS ORDERED: PHENYLEPHRINE-NS 100 MCG/ML 10 ML SYRINGE ONE (22:08)
[2025-08-12 06:42] LABS: #Basophils 0.03 10x3/uL (0.0-0.2); #Eosinophils Less than 0.03 10x3/uL (0.0-0.7); #Monocytes 0.57 10x3/uL (0.11-0.59); #Neutrophils 4.87 10x3/uL (1.40-6.50); %Basophils 0.4 % (0.0-1.0); %Eosinophils 0.1 % (0.0-10.0); %Lymphocytes 27.7 % (21.0-51.0); %Monocytes 7.5 % (0.0-10.0); %Neutrophils 64.0 % (42.0-75.0); Hematocrit 28.9 % (36.0-47.0); Hemoglobin 9.4 g/dL (12.0-16.0); Mean Corpuscular Hemoglobin 32.5 pg (27.0-31.0); Mean Corpuscular Volume 100.0 fL (78.0-98.0); Platelet Count 254 10x3/uL (130-400); Red Blood Cell (RBC) Count 2.89 mill/uL (4.20-5.40); White Blood Cell (WBC) Count 7.61 10x3/uL (4.8-10.8)
[2025-08-12 06:53] LABS: Anion Gap 13 mmol/L (10-20); BUN (Urea Nitrogen) 19 mg/dL (9.8-20.1); Calc. Creatinine Clearance 83 mL/min (70-130); Calcium 8.3 mg/dL (7.8-10.44); Carbon Dioxide 24 mmol/L (23-31); Chloride 100 mmol/L (98-107); Glucose 132 mg/dL (80-115); Potassium 3.6 mmol/L (3.5-5.1); Sodium 133 mmol/L (136-145)
[2025-08-12] MEDS ORDERED: Bisacodyl 10 MG SUPP PR PRN (09:15)
[2025-08-12] MEDS: Aspirin 81 mg Enteric Coated Tablet PO SCH (10:02)
[2025-08-12 14:29] VITALS: BMI 14.0
[2025-08-12] MEDS: cefTRIAXone\\ROCEPHIN 1 GM in Sodium Chloride 0.9% 100 ML IVPB SCH (15:27)
[2025-08-12] MEDS: Senokot S 8.6-50 MG TAB PO SCH (20:52)
[2025-08-12] MEDS: Melatonin 3 MG TAB PO PRN (20:53)
[2025-08-13 06:18] LABS: #Basophils 0.04 10x3/uL (0.0-0.2); #Eosinophils 0.26 10x3/uL (0.0-0.7); #Monocytes 0.76 10x3/uL (0.11-0.59); #Neutrophils 3.45 10x3/uL (1.40-6.50); %Basophils 0.6 % (0.0-1.0); %Eosinophils 3.7 % (0.0-10.0); %Lymphocytes 36.2 % (21.0-51.0); %Monocytes 10.7 % (0.0-10.0); %Neutrophils 48.5 % (42.0-75.0); Hematocrit 27.6 % (36.0-47.0); Hemoglobin 9.1 g/dL (12.0-16.0); Mean Corpuscular Hemoglobin 33.0 pg (27.0-31.0); Mean Corpuscular Volume 100.0 fL (78.0-98.0); Platelet Count 246 10x3/uL (130-400); Red Blood Cell (RBC) Count 2.76 mill/uL (4.20-5.40); White Blood Cell (WBC) Count 7.10 10x3/uL (4.8-10.8)
[2025-08-13 06:36] LABS: Anion Gap 9 mmol/L (10-20); BUN (Urea Nitrogen) 12 mg/dL (9.8-20.1); Calc. Creatinine Clearance 79 mL/min (70-130); Calcium 8.2 mg/dL (7.8-10.44); Carbon Dioxide 29 mmol/L (23-31); Chloride 103 mmol/L (98-107); Glucose 100 mg/dL (80-115); Potassium 3.9 mmol/L (3.5-5.1); Sodium 137 mmol/L (136-145)
[2025-08-13] MEDS: Ferrous Gluconate 324 MG TAB PO SCH (10:13)
[2025-08-13] MEDS: Milk Of Magnesia 30 ML UDCUP PO SCH (12:00)
[2025-08-13] MEDS: GoLYTELY 4,000 ml Bottle PO SCH (14:07)
[2025-08-13] MEDS: Fleet Saline Enema 133 ML BOT PR SCH (14:07)
[2025-08-14 06:37] LABS: #Basophils 0.04 10x3/uL (0.0-0.2); #Eosinophils 0.27 10x3/uL (0.0-0.7); #Monocytes 0.71 10x3/uL (0.11-0.59); #Neutrophils 3.94 10x3/uL (1.40-6.50); %Basophils 0.5 % (0.0-1.0); %Eosinophils 3.7 % (0.0-10.0); %Lymphocytes 31.7 % (21.0-51.0); %Monocytes 9.8 % (0.0-10.0); %Neutrophils 54.2 % (42.0-75.0); Hematocrit 28.9 % (36.0-47.0); Hemoglobin 9.3 g/dL (12.0-16.0); Mean Corpuscular Hemoglobin 32.5 pg (27.0-31.0); Mean Corpuscular Volume 101.0 fL (78.0-98.0); Platelet Count 262 10x3/uL (130-400); Red Blood Cell (RBC) Count 2.86 mill/uL (4.20-5.40); White Blood Cell (WBC) Count 7.28 10x3/uL (4.8-10.8)
[2025-08-14 06:37] LABS: Anion Gap 8 mmol/L (10-20); BUN (Urea Nitrogen) 8 mg/dL (9.8-20.1); Calc. Creatinine Clearance 89 mL/min (70-130); Calcium 8.5 mg/dL (7.8-10.44); Carbon Dioxide 30 mmol/L (23-31); Chloride 103 mmol/L (98-107); Glucose 97 mg/dL (80-115); Potassium 3.8 mmol/L (3.5-5.1); Sodium 137 mmol/L (136-145)
[2025-08-15 05:35] LABS: #Basophils 0.06 10x3/uL (0.0-0.2); #Eosinophils 0.25 10x3/uL (0.0-0.7); #Monocytes 0.67 10x3/uL (0.11-0.59); #Neutrophils 4.61 10x3/uL (1.40-6.50); %Basophils 0.7 % (0.0-1.0); %Eosinophils 3.1 % (0.0-10.0); %Lymphocytes 30.0 % (21.0-51.0); %Monocytes 8.4 % (0.0-10.0); %Neutrophils 57.6 % (42.0-75.0); Hematocrit 30.9 % (36.0-47.0); Hemoglobin 9.9 g/dL (12.0-16.0); Mean Corpuscular Hemoglobin 32.7 pg (27.0-31.0); Mean Corpuscular Volume 102.0 fL (78.0-98.0); Platelet Count 300 10x3/uL (130-400); Red Blood Cell (RBC) Count 3.03 mill/uL (4.20-5.40); White Blood Cell (WBC) Count 8.02 10x3/uL (4.8-10.8)
[2025-08-15 05:50] LABS: Anion Gap 13 mmol/L (10-20); BUN (Urea Nitrogen) 5 mg/dL (9.8-20.1); Calc. Creatinine Clearance 83 mL/min (70-130); Calcium 8.7 mg/dL (7.8-10.44); Carbon Dioxide 31 mmol/L (23-31); Chloride 99 mmol/L (98-107); Glucose 93 mg/dL (80-115); Potassium 3.8 mmol/L (3.5-5.1); Sodium 139 mmol/L (136-145)
[2025-08-15] MEDS: Ferrous Gluconate 324 MG TAB PO SCH (08:27)
[2025-08-15] MEDS: PNEUMOC 20-VAL CONJ-DIP CRM/PF 0.5 ML SYRINGE IM ONE (13:45)
[2025-08-15] MEDS: FLU (Fluarix Triv) 25-26 (6MOS UP)/PF 45 MCG/0.5 ML Syringe IM ONE (17:16)
[2025-08-15 18:24] VITALS: BP 109/67; TEMP 98.3
== END 2025-08-15 18:41 | disposition home or self-care (01) | DRG 668 ==
LOC: ERS 09:18 → T4-B 15:49
PROVIDERS: ADMIT Family Medicine; ATTEND Internal Medicine
PROC: 0TCB8ZZ Extirpation of Matter from Bladder, Via Natural or Artificial Opening Endoscopic (ICD-10-PCS; principal; 2025-08-11)
PROC: 0T9B8ZX Drainage of Bladder, Via Natural or Artificial Opening Endoscopic, Diagnostic (ICD-10-PCS; 2025-08-11)
PROC: 3E03329 Introduction of Other Anti-infective into Peripheral Vein, Percutaneous Approach (ICD-10-PCS; 2025-08-12)
PROC: 3E0234Z Introduction of Serum, Toxoid and Vaccine into Muscle, Percutaneous Approach (ICD-10-PCS; 2025-08-15)
DX: R31.0 Gross hematuria (principal); E43 Unspecified severe protein-calorie malnutrition; D62 Acute posthemorrhagic anemia; Z68.1 Body mass index [BMI] 19.9 or less, adult; N39.0 Urinary tract infection, site not specified; M19.90 Unspecified osteoarthritis, unspecified site; F17.210 Nicotine dependence, cigarettes, uncomplicated; F12.10 Cannabis abuse, uncomplicated; G35.D Multiple sclerosis, unspecified; I10 Essential (primary) hypertension; Z90.49 Acquired absence of other specified parts of digestive tract; Z90.710 Acquired absence of both cervix and uterus; Z98.890 Other specified postprocedural states; K56.41 Fecal impaction
CPT/HCPCS: 36415; 51701; 74018; 74177; 80048; 80053; 81001; 85025; 85610; 85730; 86850; 86900; 86901; 87077; 87086; 87186; 88305; 90656; 93005; 93010; 96365; A4333; J0696; J2003; J2704; Q0162; Q9967